=== PATIENT | female | born 1935 | race Caucasian/White ===

== ENCOUNTER 2017-12-10 09:45 | Outpatient (CLI) | payer MEDICARE ==
--- NOTE | 2017-12-10 14:48 | NM ---
WHOLE BODY BONE SCAN: Date: 12/10/17 HISTORY: Wedge compression fracture of fifth lumbar vertebra. RADIOPHARMACEUTICAL: 31.2 mCi technetium-99m MDP injected intravenously. FINDINGS: There are no plain radiographs for correlation. Findings in the spine should be correlated with plain radiographs and also for adequate counting and labeling of the vertebra. There is increased uptake in the lower thoracic spine (likely T10), L2 and probably L4 or L5 vertebra e, suggestive of recent fractures. There are bilateral hip replacements. Focus of increased uptake at the inferior tip of the right femo ral prosthesis is present. Increased uptake in the shoulder joints, right greater than left, is consistent with degenerative mitchell nge. Tracer excretion through the kidneys within normal limits. IMPRESSION: 1. Recent compression fractures in the thoracolumbar spine. Correlation with plain radiographs recom mended. 2. Focus of increased uptake at the inferior aspect of the right hip replacement. The possibility of loosening should be considered. POS: [facility]
== END 2017-12-10 09:46 | disposition home or self-care (01) ==
LOC: NM 09:45
PROVIDERS: ATTEND Specialist
DX: S32.050D Wedge compression fracture of fifth lumbar vertebra, subsequent encounter for fracture with routine healing (principal); S22.009D Unspecified fracture of unspecified thoracic vertebra, subsequent encounter for fracture with routine healing
CPT/HCPCS: 78306; A9503

== ENCOUNTER 2017-12-12 12:39 | Inpatient (IN) | payer MEDICARE ==
[2017-12-12 13:34] LABS: Bilirubin Negative (Negative); Blood, Urine Negative (Negative); Clarity CLEAR (Clear); Glucose, Urine (Dipstick) Negative (Negative); Leukocyte Moderate (Negative); Nitrite Negative (Negative); Protein, Urine (Dipstick) Negative (Neg-Trace); Specific Gravity, Urine 1.003 (1.002-1.036); Urobilinogen 0.2 mg/dL (0.2-1.0); pH, Urine 7.5 (5.0-9.0)
[2017-12-12 13:35] LABS: Bacteria/HPF None Seen HPF (None Seen); Hyaline Casts/LPF 0-3 HYALINE CAST LPF (0-3 Hyaline); Pathc Cast-AUWi Flag 0.14 (0-2.49); RBC/HPF None Seen HPF (0-3); Squamous Epithelial 0-3 HPF (0-3)
[2017-12-12] MEDS ORDERED: Fentanyl 100 MCG/2 ML VIAL ONE ×3 (13:37→18:49)
[2017-12-12] MEDS ORDERED: Diazepam 10 MG/2 ML SYRINGE IVP ONE (13:45)
[2017-12-12] MEDS ORDERED: Diazepam 5 MG TAB ONE (14:17)
--- NOTE | 2017-12-12 14:25 | CT ---
CT LUMBAR SPINE WITHOUT CONTRAST: Date: 12/12/17 HISTORY: Chronic back pain. Patient had back surgery on Wednesday and believes show hurt the surgical changes yesterday. Increased pain. TECHNIQUE: Multiple contiguous axial images were obtained in a CT of the lumbar spine without contrast. Sagittal and coronal reformats were performed. FINDINGS: There is Grade I anterolisthesis of L4 on L5. There is wedge compression of the L1 vertebral body wit h approximately 10-25% height loss. There is severe wedge compression deformity of the T11 vertebral body with approximately 75% height loss. The fracture at T11 may be more acute. The other vertebral b odies demonstrate normal height. Posterior facet arthrosis is seen in the lower lumbosacral spine. There are calcified fibroids in the uterus. Scattered diverticula are seen in the colon. Atherosclero tic calcifications are seen in the aorta. Paraspinal soft tissues are unremarkable. IMPRESSION: 1. Degenerative changes of the lumbar spine without acute abnormality. 2. Compression fractures of T11 and L1 as above. POS: [facility]
[2017-12-12] MEDS ORDERED: Dexamethasone 4 MG TAB ONE (15:55)
[2017-12-12] MEDS ORDERED: Ondansetron HCl/PF 4 MG/2 ML Vial ONE (15:55)
[2017-12-12 16:09] LABS: #Lymphocytes 0.9 thou/uL (1.20-3.40); #Monocytes 0.3 thou/uL (0.11-0.59); #Neutrophils 4.4 thou/uL (1.40-6.50); %Basophils 0.4 % (0.0-1.0); %Eosinophils 0.7 % (0.0-10.0); %Lymphocytes 16.5 % (21.0-51.0); %Monocytes 4.8 % (0.0-10.0); %Neutrophils 77.6 % (42.0-75.0); Mean Corpuscular HGB CONC 34.4 g/dL (32.0-36.0); Mean Corpuscular Hemoglobin 31.8 pg (27.0-31.0); Mean Corpuscular Volume 92.4 fL (78.0-98.0); Mean Platelet Volume 8.6 fL (7.4-10.4); Platelet Count 149 thou/uL (130-400); RBC Distribution Width 15.1 % (11.5-14.5); Red Blood Cell (RBC) Count 3.78 mill/uL (4.20-5.40); White Blood Cell (WBC) Count 5.6 thou/uL (4.8-10.8)
[2017-12-12] MEDS ORDERED: Ondansetron ODT 4 MG TAB ONE (16:19)
[2017-12-12 16:29] LABS: ALT (SGPT) 17 U/L (8-55); AST (SGOT) 19 U/L (5-34); Alkaline Phosphatase 73 U/L (40-150); Anion Gap 11 mmol/L (10-20); BUN (Urea Nitrogen) 11 mg/dL (9.8-20.1); Bilirubin, Total 0.6 mg/dL (0.2-1.2); Calc. Creatinine Clearance 0 mL/min (70-130); Calcium 9.5 mg/dL (7.8-10.44); Carbon Dioxide 26 mmol/L (23-31); Chloride 107 mmol/L (98-107); Estimated GFR-MDRD 71; Globulin 2.8 g/dL (2.4-3.5); Glucose 168 mg/dL (83-110); Magnesium 2.2 mg/dL (1.6-2.6); Potassium 4.1 mmol/L (3.5-5.1); Protein, Total 6.8 g/dL (6.0-8.3); Sodium 140 mmol/L (136-145)
[2017-12-12] MEDS ORDERED: Ondansetron HCl/PF 4 MG/2 ML Vial IVP PRN (18:49)
[2017-12-12] MEDS: Acetaminophen 325 MG TAB PO PRN (20:29)
[2017-12-12] MEDS: Fentanyl 100 MCG/2 ML VIAL SLOW IVP PRN ×2 (20:36→22:48)
[2017-12-12 20:44] VITALS: BMI 23.3
[2017-12-12] MEDS ORDERED: Nitroglycerin 0.4 MG TAB (25 Tab Bottle) SL PRN (22:04)
[2017-12-12] MEDS ORDERED: Atorvastatin Calcium 40 MG TAB PO SCH (22:15)
[2017-12-12] MEDS ORDERED: Zolpidem Tartrate 5 MG TAB PO SCH (22:15)
[2017-12-12] MEDS: Dexamethasone 4 mg/ml Vial SLOW IVP SCH (22:55)
[2017-12-12] MEDS ORDERED: Dexamethasone 4 MG in Sodium Chloride 0.9% 50 ML IVPB SCH (23:55)
[2017-12-13] MEDS ORDERED: HYDROcodone/Acetaminophen 5/325 mg Tablet PO PRN ×2 (00:58→01:34)
[2017-12-13] MEDS ORDERED: Nitroglycerin 0.4 MG TAB (25 Tab Bottle) SL PRN (00:58)
[2017-12-13] MEDS ORDERED: Dextrose 5% in Water 1,000 ML IV PRN (01:03)
[2017-12-13] MEDS ORDERED: Dextrose 50% Abboject 50 ML SYRINGE SLOW IVP PRN (01:03)
--- NOTE | 2017-12-13 01:22 | CON ---
DATE OF CONSULTATION: 12/12/2017 CHIEF COMPLAINT: New onset low back pain. HISTORY OF PRESENT ILLNESS: Ms. Anthony reports that she was sitting in a chair this afternoon when sh e got to get up, she stretched a little bit and felt a pop and sudden pain in her low back. The fior ent has a history of compression fractures which she sees Dr. Espitia for. She actually has a kyph oplasty scheduled for Wednesday of this week. This is a new compression fracture that happened today . The patient denies any falls. The patient states that she has had some urinary symptoms of retent ion throughout the morning. However, upon coming to the emergency room, she has been able to urinate normally with some urgency. She does test positive for a UTI. The patient denies any numbness or t ingling in her saddle area. She does state that she has a small amount of tingling in both of her to es that is new today. She has an ache in her back and her hips that comes down to the front of her l eg bilaterally. The patient is most comfortable when lying flat and any amount of moving, sudden mov ement is very painful for her. She is able to move all 4 extremities well with good strength bilater ally. REVIEW OF SYSTEMS: The patient denies any fever, chills, any change in weight. She denies any heari ng or visual changes. Denies any difficulty swallowing. No nausea or vomiting. No chest pain, no s hortness of breath. The patient denies any abdominal pain, constipation or diarrhea. The patient st ates that she has had some difficulty with urination and frequency. The patient states that she has back pain. PAST MEDICAL HISTORY: The patient has diabetes, type 2; history of hypertension; and cardiovascular disease. PAST SURGICAL HISTORY: The patient has had 3 stents placed approximately about a year ago, appendect evens and left knee orthopedic surgery. SOCIAL HISTORY: The patient denies any drug use. She has a history of smoking, quit 30 years ago. She drinks socially. Lives with her at home, fairly independent. ALLERGIES: MORPHINE and PENICILLIN. CURRENT MEDICATIONS: Eliquis, carvedilol, atorvastatin, , lidocaine, adhesive patch, B12, hydro codone/acetaminophen, alprazolam, prednisone, levothyroxine, nitroglycerin. PHYSICAL EXAMINATION: VITAL SIGNS: Blood pressure 152/87, heart rate 73, respiratory rate 17, pain 9, O2 sats is 98% on ro om air. GENERAL: The patient is lying in hospital bed. She is afebrile. Breathing normally is nontoxic. S he is alert and oriented to person, place, and time. HEAD: Normal. Atraumatic, normocephalic. EYES: Pupils are equal, round, and reactive to light. Extraocular movements are intact. No nystagm us. ENT: Moist mucous membranes. RESPIRATORY: Normal work of breathing in room air. Normal chest rise symmetrical. CARDIOVASCULAR: Regular rate and rhythm. No murmurs. S1, S2. NEUROLOGIC: The patient is oriented to person, place and time. Speech is normal, fluent. Cranial n erves II-XII are grossly intact. There are no focal motor deficits. The patient is moving all 4 ext remities. She has 5/5 strength in upper and lower extremities; however, movement in lower extremitie s increases her lumbar back pain. The patient denies any sensory deficits in all 4 extremities. The patient is tender to palpate at T11 down to L3. Paraspinal muscles are spasm and painful to touch b ilaterally. IMAGING: Lumbar spine CT shows compression fracture of T11 and L1, acute. ASSESSMENT AND PLAN: The patient has sustained a new T11 compression fracture. She also has older L 1 compression fracture. The patient is also positive for a urinary tract infection. She will be adm itted and monitored based on her UTI along with pain management. We will order for the alon rosa isela fractures. The patient sees Dr. Espitia and he has been notified of her admission to the hosp [facility]. She was scheduled to have a kyphoplasty on Wednesday and he may be able to address the new fra cture at the same time. The patient should use a brace for pain control. She should have it on anyt barbara she is up and out of bed. She does not need to wear while she is flat. The patient may roll kodi e to side while in bed. The patient does not need to use brace while she is in the shower. Brace sh ould be applied while lying down before she sits up. Please contact Neurosurgery if any new symptoms change.
[2017-12-13] MEDS: Lidocaine 5% Patch TD SCH (02:02)
[2017-12-13] MEDS: cefTRIAXone\\ROCEPHIN 1 GM in Sodium Chloride 0.9% 100 ML IVPB SCH (02:48)
[2017-12-13] MEDS: Fentanyl 100 MCG/2 ML VIAL SLOW IVP PRN (03:16)
--- NOTE | 2017-12-13 03:19 | HP ---
PRIMARY CARE PHYSICIAN: [facility]. CODE STATUS: The patient is FULL CODE. TIME OF EVALUATION: 6:35 p.m. CHIEF COMPLAINT: Severe back pain, unable to urinate. HISTORY OF PRESENT ILLNESS: This is an 82-year-old female patient with past medical history of osteo porosis and multiple back surgeries due to compression fractures, patient reported having some back s urgery Wednesday and she was moving yesterday, she started having severe pain and reported that she w as unable to urinate, the symptoms are reported as severe, triggered by movement, no alleviating fact ors, started suddenly. The recent neurosurgeon was consulted. The patient is on Decadron, she will be seen by Neurosurgery for further recommendations. REVIEW OF SYSTEMS: Constitutional: No fever, no chills, generalized weakness, dizziness. Respirato ry: No cough, sputum production, shortness of breath. Cardiovascular: No chest pain or palpitation s, shortness of breath. Gastrointestinal: No nausea, no vomiting, diarrhea or abdominal pain. POTATO CHIP FRYER: No dizziness, headache or feeling lightheaded. Patient has inability to urinate, bilateral lower e xtremities. pain exacerbated with movement. Genitourinary: Urinary retention. Extremities: No le g swelling. All other systems reviewed and negative except for the findings mentioned above. PAST MEDICAL HISTORY: Positive for diabetes type 2, hypertension. PAST SURGICAL HISTORY: Valve replacement one year ago, appendectomy, orthopedic surgery, left knee s urgery. PSYCHIATRIC HISTORY: No psych history. SOCIAL HISTORY: Patient is a former tobacco user, quit smoking 30 years ago. DRUG ALLERGIES: MORPHINE and PENICILLIN. REPORTED MEDICATIONS: Eliquis 2.5 mg a day, clopidogrel, atorvastatin, risedronate, , hydrocodo ne/acetaminophen, alprazolam, prednisone, levothyroxine, nitroglycerin. PHYSICAL EXAMINATION: VITAL SIGNS: On presentation, blood pressure 202/99 with heart rate 74, respiratory rate was 18, tem perature 98.3, pain 10/10, oxygen saturation 98%. GENERAL APPEARANCE: The patient is alert, oriented, not in any acute distress, only when she moves, the pain comes back again. HEENT: Eyes: Normal conjunctivae. Moist oral mucosa. Anicteric. NECK: No JVD. RESPIRATORY: Bilateral air entry. No rales or wheezing. Symmetric expansion. CARDIOVASCULAR: Normal rate, regular rhythm. No murmurs, no gallop. No edema. ABDOMEN: Soft, normal bowel sounds. MUSCULOSKELETAL: Baseline range of motion and strength. No tenderness. SKIN: Warm and intact. No pallor, no rash. No redness. Peripheral pulses are present. NEUROLOGIC: Capillary refill seems to be intact. Neurologic, baseline sensory. Patient has bilater al lower extremity weakness, patient unable to urinate likely due to neurogenic bladder. PSYCHIATRIC: Patient is in a good mood. No anxiety. Oriented. Optimal adjustment. IMAGING: Lumbar spine CT was done. The patient has degenerative changes in the lumbar spine without acute abnormalities, compression fractures of T11 and L1. LABORATORY DATA: The labs were reviewed. The patient has white count 5.6, hemoglobin 12, hematocrit 34.9, MCV 92, platelet count 149. Chemistry: Sodium 140, potassium 4.1, chloride 107, carbon dioxi de 26, glucose 168, creatinine is normal. UA was done, it was positive. ASSESSMENT AND PLAN: 1. Lumbar compression fracture, severe pain, difficulty urinating, patient is on Decadron, Neurosurg kanu has been called, see the patient and give recommendations. 2. Urinary tract infection, positive urine, patient has been started on antibiotics, final cultures. Adjust treatment as needed. 3. Severe pain needing a pain medication for edema control. It is believed patient had a recent com plication from medication. 3. Anxiety. Reconcile home medications. 4. Hyperlipidemia, reconcile home medication, adjust treatment as needed. 5. Uncontrolled diabetes, blood sugar 160, we will place the patient on sliding scale, adjust treatm ent as needed. 6. Uncontrolled hypertension, we will reconcile home meds, adjust medications IV p.r.n. for optimal control. 7. Deep venous thrombosis prophylaxis, possible need for procedure.
[2017-12-13] MEDS: Dexamethasone 4 mg/ml Vial SLOW IVP SCH ×3 (05:37→17:48)
[2017-12-13] MEDS: Acetaminophen 325 MG TAB PO PRN ×2 (05:37→20:33)
[2017-12-13] MEDS: Levothyroxine Sodium 50 MCG TAB PO SCH (05:37)
[2017-12-13 06:03] LABS: #Lymphocytes 0.5 thou/uL (1.20-3.40); #Monocytes 0.1 thou/uL (0.11-0.59); #Neutrophils 3.9 thou/uL (1.40-6.50); %Basophils 0.3 % (0.0-1.0); %Eosinophils 0.2 % (0.0-10.0); %Lymphocytes 11.7 % (21.0-51.0); %Monocytes 1.8 % (0.0-10.0); Hemoglobin 12.1 g/dL (12.0-16.0); Mean Corpuscular HGB CONC 34.3 g/dL (32.0-36.0); Mean Corpuscular Hemoglobin 31.4 pg (27.0-31.0); Mean Corpuscular Volume 91.6 fL (78.0-98.0); Mean Platelet Volume 8.3 fL (7.4-10.4); Platelet Count 162 thou/uL (130-400); RBC Distribution Width 15.2 % (11.5-14.5); Red Blood Cell (RBC) Count 3.84 mill/uL (4.20-5.40); White Blood Cell (WBC) Count 4.6 thou/uL (4.8-10.8)
[2017-12-13 06:21] LABS: Anion Gap 13 mmol/L (10-20); BUN (Urea Nitrogen) 14 mg/dL (9.8-20.1); Calc. Creatinine Clearance 49 mL/min (70-130); Carbon Dioxide 21 mmol/L (23-31); Chloride 107 mmol/L (98-107); Estimated GFR-MDRD 68; Glucose 238 mg/dL (83-110); Potassium 3.9 mmol/L (3.5-5.1); Sodium 137 mmol/L (136-145)
--- NOTE | 2017-12-13 07:20 | PRG ---
DATE OF SERVICE: 12/13/2017 I personally interviewed and examined the patient and agree with documentation of Ghazal Nicole PA-C dated 12/11/2017. Briefly, Ms. Sarah Anthony is an 82-year-old woman admitted to the hospital with some intractable back pa in. On Wednesday of last week, she was standing from a seated position and had immediate onset back pain. Interestingly, the pain is centered at the sacral level rather than at T11. This became so se colt that she could not manage at home and was brought to the emergency department after a number of days. She has good motor control of her lower extremities and no saddle anesthesia and was admitted for pain control. Imaging has been done revealing brightness on the bone scan at T11, L3 and L5. A CT scan was done showing compression fractures at T11, L1, L3 and L5 as well as some sacral wing defo rmity that appears chronic. Overnight, Ms. Anthony's pain is little bit better controlled. She is wearing her brace. She has good motor function in her lower extremities. After speaking with Ms. Anthony, I wonder if there is a small sacral insufficiency fracture given the l ocation of her pain at the sacral level to the right side near the sacroiliac joint rather than the m idline of the spine. However, she is tender there. When change, we need to make to her medical tk men that is been more aggressive about her osteoporosis. A Forteo or Prolia should be considered to prevent the next fracture. I think we should manage this pain with bracing and analgesics. I am not sure which of the 3-4 fractures are giving her most of her discomfort, but certainly the T11 vertebr ae is the brightest on her bone scan. Use of bone cement for vertebroplasty or kyphoplasty would cer tainly be an option for pain control if she fails conservative measures. However, it puts her at ris k for future fractures above and below those vertebral bodies that are treated with cement. Further, this might not offer any pain control at all if there is indeed a sacral issue. She agrees with the conservative management scheme. Physical therapy can be instituted now as well a nd will follow up in the office to see how her pain control is.
[2017-12-13] MEDS ORDERED: predniSONE 5 MG TAB PO SCH (08:00)
[2017-12-13] MEDS ORDERED: Prevnar 13-Val Conj/PF 0.5 ML SYRINGE IM ONE (09:00)
[2017-12-13] MEDS: Cyanocobalamin (Vitamin B-12) 1,000 MCG TAB PO SCH (09:10)
[2017-12-13] MEDS: Senokot 8.6 MG TAB PO SCH ×2 (09:10→20:33)
[2017-12-13] MEDS: ALPRAZolam 0.25 MG TAB PO PRN (09:10)
[2017-12-13] MEDS: HYDROcodone/Acetaminophen 5/325 mg Tablet PO PRN ×3 (09:11→17:48)
[2017-12-13] MEDS: traMADol HCl 50 MG TAB PO PRN (11:45)
[2017-12-13] MEDS: HumaLOG 300 UNITS/3 ML VIAL SC PRN ×2 (11:46→17:48)
--- NOTE | 2017-12-13 12:33 | CT ---
CT LUMBAR SPINE: Technique: Multiple contiguous axial images were obtained through the lumbar spine with multiplanar r econstruction. Indications: Assess compression fractures. Comparison: CT lumbar spine, 12-12-17. Bone scan, 12-10-17. FINDINGS: Bone scan showed activity in the T11 vertebra as well as the region of the L3 vertebra. The severe compression deformity at T11 is again noted and is unchanged from yesterday. The anterior wedge compression at T12 and L1 appears stable. The loss of anterior height at L1 is approximately 40 -50% and unchanged. Mild compression deformity of L3 is seen which is stable from yesterday. Activity at L3 may indicate an acute compression deformity. There is a small fragment off the anterior superior corner of L3 whic h does suggest probable acute compression. L4 vertebra is maintained and unchanged. There is mild compression of the L5 vertebra which is stable from yesterday. No activity was present at L5 region and therefore this is probably a stable compression. There is anterolisthesis of L4-5 which was described yesterday and is stable. Moderate to severe central canal stenosis at L2-3 due to disc bulge and posterior hypertrophic change . Moderate to severe central canal stenosis at L3-4 secondary to disc bulge and posterior hypertrophic change. Severe central canal stenosis at L4-5 secondary to anterolisthesis, disc bulge, and hypertrophic pérez ge. Moderate central canal stenosis at L5-S1. IMPRESSION: There are compression deformities involving multiple vertebrae as described above. The findings are s table from yesterday. There is central canal stenosis at multiple levels as described above. POS: [facility]
[2017-12-13] MEDS: Lidocaine Patch Removal 1 EACH TOP SCH (13:32)
--- NOTE | 2017-12-13 18:13 | CT ---
CT THORACIC SPINE WITHOUT CONTRAST: HISTORY: T11 fracture. COMPARISON: None. TECHNIQUE: Thoracic spine CT is performed without contrast. Reformatted images are submitted for interpretation . FINDINGS: There is a stent along the aortic root and proximal aorta. Mediastinal structures are limited in pete luation. No obvious pericardial fluid. There are coronary artery calcifications. The visualized ao rta has an overall normal caliber. The visualized upper solid organs are unremarkable. Note is made of cholelithiasis. Trachea and central bronchi are patent. The visualized lung parenchyma are unremarkable. There is diffuse bone demineralization. There is a severe compression fracture with loss of vertebra l body height and resultant kyphosis at T11. There is a mild compression fracture at T10 and L1. Th e aforementioned compression fractures appear to be chronic. There is no retroperitoneal/paraspinal hematoma. Grossly, the central spinal canal is patent. There is mild narrowing at the T11 and T11-T12 disk spa manjeet. Throughout the thoracic spine, the neural foramina are patent. IMPRESSION: Remote compression fracture involving the thoracic and lumbar spine, as described above. There is a severe compression fracture at T11 with associated vertebral plana and kyphosis. POS: [facility]
[2017-12-13] MEDS ORDERED: diphenhydrAMINE 25 MG CAP PO PRN (19:40)
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
[2017-12-13] MEDS: Zolpidem Tartrate 5 MG TAB PO SCH (20:33)
[2017-12-13] MEDS: Atorvastatin Calcium 40 MG TAB PO SCH (20:33)
[2017-12-13] MEDS ORDERED: ZOLPIDEM TARTRATE PO SCH (21:00)
[2017-12-13] MEDS ORDERED: Atorvastatin Calcium 40 MG TAB PO SCH (21:00)
[2017-12-14] MEDS: Dexamethasone 4 mg/ml Vial SLOW IVP SCH ×4 (00:59→16:34)
[2017-12-14] MEDS: Lidocaine 5% Patch TD SCH (00:59)
[2017-12-14] MEDS: cefTRIAXone\\ROCEPHIN 1 GM in Sodium Chloride 0.9% 100 ML IVPB SCH (03:50)
[2017-12-14] MEDS: HumaLOG 300 UNITS/3 ML VIAL SC PRN ×4 (06:47→20:45)
[2017-12-14] MEDS: Levothyroxine Sodium 50 MCG TAB PO SCH (06:47)
[2017-12-14] MEDS: HYDROcodone/Acetaminophen 5/325 mg Tablet PO PRN ×3 (08:50→20:37)
[2017-12-14] MEDS: Senokot 8.6 MG TAB PO SCH ×2 (08:50→20:36)
[2017-12-14] MEDS: Cyanocobalamin (Vitamin B-12) 1,000 MCG TAB PO SCH (08:50)
--- NOTE | 2017-12-14 10:32 | CON ---
DATE OF CONSULTATION: 12/13/2017 HISTORY OF PRESENT ILLNESS: Ms. Anthony is an 82-year-old female, who was recently evaluated and treat ed in our pain management clinic last week, who was admitted from the emergency room on 12/12/[address] reporting feeling a "pop" in her mid to low back, followed by severe pain on Wednesday morning while trying to reposition in bed. The pain was sharp, stabbing and limited her mobility, transfers and f unctionality at home. She was brought to the emergency room for increase in pain where a CT of the l umbar spine was completed which revealed what appeared like an acute T11 vertebral body compression f racture and multiple lumbar compression fractures of varying acuity at the L1, L3, L4, and L5 levels as well. After discussing the case with the ER physician on Wednesday it was decided to admit the patie nt for observation, pain control and recommended bracing with input from Neurosurgery. Ms. Anthony had recently completed lumbar medial branch blocks last week with Dr. Espitia for her chr onic low back pain. She had had a previous CT done at [facility], which was reviewed in the clinic revealing an L4-L5 listhesis with moderate to severe central canal stenosis and moderate b ilateral neural foraminal stenosis. The medial branch blocks did provide her with minimal relief; ho wever, it appears like her old compression fractures were giving her more pain than her facets. Kyph oplasty was therefore planned for later this coming week in the lumbar spine pending holding of antic oagulant therapy and bone scan results for L1 versus L3 with Dr. Espitia. Today, she has been admi tted. She is resting in bed with a TLSO brace, appears comfortable and rates her pain at 8/10 after recently being medicated. She continues to report pain to the midline back as well as the lower lumb ar and sacral region, which is greater on the right versus left. She was having some bladder inconti nence; however, she reports return of bladder function, no bowel movement in 3 days. She denies any radiating pain to the lower extremities. Reports generalized weakness to lower extremities; however, this has been consistent for her for the past several weeks. ALLERGIES: MORPHINE and PENICILLIN. PAST MEDICAL HISTORY: Diabetes, hypertension, CBD stents, pulmonary embolus, hyperlipidemia, heart v alve replacement. PAST SURGICAL HISTORY: Heart valve surgery, cardiac stents, knee surgery, shoulder fracture. FAMILY HISTORY: Includes CVA, heart disease. SOCIAL HISTORY: Reports living alone independently; however, she does rely on her son for transporta tion and assist around her house. She uses an assistive device for mobility including wheelchair and /or rolling walker dependent on her pain level. She is a former smoker. She does have Mica Washer Gluer apy come into her home 4-5 times a week. MEDICATIONS: Current medications have been reviewed. REVIEW OF SYSTEMS: Review of systems are negative except for pertinent positives above noted in the history of present illness. PHYSICAL EXAMINATION: VITAL SIGNS: Today are 134/71, heart rate is 70, temperature 98.3, respirations 18, 97% saturation o n room air. GENERAL: Again, the patient is alert and oriented x3, resting in bed with TLSO in place. No acute d istress, pain is 8/10. C-spine with active range of motion that is full, reflexes bilateral +1. Mot or strength is diminished to bilateral upper extremities, 3/5 equal with +4/5 ccie strength to bilate ral upper extremities. Thoracic spine with tenderness at T11-T12 with palpation, no obvious deformit ies noted, TLSO brace on, which is loosened for the exam. She was able to log roll fairly independen tly for assessment. Range of motion is limited with the TLSO on and her thoracic pain. Lumbar spine with bilateral lower lumbar pain, greater on the right sacral region versus the left. Bilateral low er extremities with SCDs in place. Bilateral lower extremity strength 4/5, equal with intact dorsifl exion, plantar flexion. Straight leg raise is negative on exam bilaterally. Gait is not assessed, p atient remains in bed. SI joint with no tenderness bilaterally. Neurologically, she is intact, aler t, pleasant, oriented x3. ASSESSMENT AND PLAN: 1. Acute thoracic compression fracture of T11. Plan is recommend to continue conservative treatment with bracing and medications. Neurosurgery has been consulted with no surgical recommendations at t his time. Plan to start physical therapy to work on functional mobility. Recommendation to follow u p for thoracic CT to ensure the levels above and around T11 including T9, T10 are without fractures a s she remains tender and symptomatic in this area. After discussion with Dr. Daftarian she will like ly benefit from kyphoplasty at T11 [address] of the thoracic spine as this is obviously acute and new in nature. Recommendation to follow up after CT thoracic spine completed. Risk are associated w ith bed rest and limited function secondary to pain from vertebral compression fracture include pneum onia, weakness, ileus and continued decline in function and independence as well as chronic pain. 2. Chronic compression lumbar fractures. The plan is to continue to monitor, may be a candidate for kyphoplasty or repeat lumbar medial branch blocks in the facet joints which may improve short term, may lead to longer term relief with rhizotomy for pain management.
[2017-12-14] MEDS: traMADol HCl 50 MG TAB PO PRN (11:22)
[2017-12-14] MEDS: Lidocaine Patch Removal 1 EACH TOP SCH (12:06)
[2017-12-14] MEDS: ALPRAZolam 0.25 MG TAB PO PRN (19:33)
--- NOTE | 2017-12-14 20:11 | PDOC.PN ---
- Subjective Encounter Start Date: 12/14/17 Encounter Start Time: 20:10 Subjective: f/u for UTI, multiple vertebral compression fx tx with TLSO bracing -: and pain control. Ucx with Enterococcus spp. Feels ok overall. - Objective Resuscitation Status: Resuscitation Status FULL:Full Resuscitation MAR Reviewed: Yes Vital Signs & Weight: Vital Signs (12 hours) Temp Pulse Resp BP Pulse Ox 12/14/17 19:53 97.9 F 60 20 130/62 97 12/14/17 16:17 97.8 F 74 18 115/74 94 L 12/14/17 11:06 97.6 F 76 18 120/69 98 Weight Weight 130 lb 14.4 oz I&O: 12/13/17 12/14/17 12/15/17 06:59 06:59 06:59 Intake Total 451 Output Total 600 700 Balance -149 -700 Result Diagrams: 12/13/17 05:32 12/13/17 05:32 Additional Labs: Accuchecks 12/14/17 12/14/17 12/14/17 15:38 10:45 04:31 POC Glucose 279 H 220 H 213 H 12/13/17 20:37 POC Glucose 191 H Microbiology 12/12/17 13:17 Urine Straight Catheter Urine Culture - Final Enterococcus species 12/12/17 13:17 Urine Straight Catheter Urine Culture - Preliminary Presumptive Enterococcus sp. Phys Exam - Physical Examination Constitutional: NAD HEENT: PERRLA, sclera anicteric, oral pharynx no lesions Neck: no nodes, no JVD, supple, full ROM Respiratory: no wheezing, no rales, no rhonchi, clear to auscultation bilateral S1, S2 Cardiovascular: RRR, no significant murmur, no rub, gallop Gastrointestinal: soft, non-tender, no distention, positive bowel sounds TLSO brace in place Musculoskeletal: no edema, pulses present Neurological: normal sensation, moves all 4 limbs Psychiatric: normal affect, A&O x 3 Skin: normal turgor, cap refill <2 seconds Dx/Plan (1) Intractable low back pain Code(s): M54.5 - LOW BACK PAIN Status: Acute Comment: Secondary to multiple compression fx and DJD, TSLO bracing, pain control, Dexamethasone (2) Vertebral compression fracture Code(s): M48.50XA - COLLAPSED VERTEBRA, NEC, SITE UNSP, INIT Status: Acute Comment: See above for mgmt, ? kyphoplasty (3) UTI (urinary tract infection) due to Enterococcus Code(s): N39.0 - URINARY TRACT INFECTION, SITE NOT SPECIFIED; B95.2 - ENTEROCOCCUS THE CAUSE OF DISEASES CLASSIFIED ELSEWHERE Status: Acute Comment: Continue Rocephin 1gm IV daily, start Macrobid 100mg BID in am (4) Osteoporosis Code(s): M81.0 - AGE-RELATED OSTEOPOROSIS W/O CURRENT PATHOLOGICAL FRACTURE Status: Chronic Comment: Likely will benefit from Forteo or Prolia after d/c - Plan PT/OT, social media intern, out of bed/ambulate, DVT proph w/SCDs Stable overall -: Continue Pain control -: Continue Dexamethasone converting to po in am -: OOB with PT -: Inpt rehab vs SNF options * .
[2017-12-14] MEDS: Atorvastatin Calcium 40 MG TAB PO SCH (20:36)
[2017-12-14] MEDS: Zolpidem Tartrate 5 MG TAB PO SCH (20:37)
[2017-12-14] MEDS: Nitrofurantoin Monohyd/M-Cryst 100 MG CAP PO SCH (20:37)
[2017-12-15] MEDS: Dexamethasone 4 mg/ml Vial SLOW IVP SCH ×4 (00:01→18:16)
[2017-12-15] MEDS: Lidocaine 5% Patch TD SCH (01:11)
[2017-12-15] MEDS: cefTRIAXone\\ROCEPHIN 1 GM in Sodium Chloride 0.9% 100 ML IVPB SCH (03:32)
[2017-12-15] MEDS: Levothyroxine Sodium 50 MCG TAB PO SCH (06:00)
[2017-12-15] MEDS: Fentanyl 100 MCG/2 ML VIAL SLOW IVP PRN ×2 (09:16→11:35)
[2017-12-15] MEDS: Cyanocobalamin (Vitamin B-12) 1,000 MCG TAB PO SCH (10:39)
[2017-12-15] MEDS: Nitrofurantoin Monohyd/M-Cryst 100 MG CAP PO SCH ×2 (10:39→20:09)
[2017-12-15] MEDS: Senokot 8.6 MG TAB PO SCH ×2 (10:39→20:09)
[2017-12-15] MEDS ORDERED: Fentanyl 100 MCG/2 ML VIAL ONE ×2 (15:00→15:39)
[2017-12-15] MEDS ORDERED: hydrALAZINE 20 MG/ML VIAL ONE (15:00)
[2017-12-15] MEDS: Lidocaine Patch Removal 1 EACH TOP SCH (15:28)
[2017-12-15 15:56] LABS: CKMB 0.7 ng/mL (0-6.6); Troponin I Less than 0.010 ng/mL (< 0.028)
--- NOTE | 2017-12-15 16:01 | RAD ---
PORTABLE AP CHEST X-RAY 12/15/17 HISTORY: Chest pain. COMPARISON: None available. FINDINGS: Dual lead left subclavian cardiac pacemaking device noted in place. There is stent graft material ove rlying the expected location of the aortic valve which may represent aortic valve replacement. Cardia c silhouette and pulmonary vasculature are within normal limits. Calcified granuloma overlies the rig ht upper lobe. The lungs are otherwise clear. osteopenia is present. Vertebroplasty changes involve c ompression fractures of the lower thoracic and upper lumbar vertebral bodies. Vascular calcification in the thoracic aorta. IMPRESSION: No acute cardiopulmonary process. POS: [facility]
--- NOTE | 2017-12-15 17:48 | PDOC.PN ---
- Subjective Encounter Start Date: 12/15/17 Encounter Start Time: 17:40 Subjective: f/u for T11 compression fx and s/p kyphoplasty of same level including -: L1, L3 and L5. c/o back pain currently. - Objective Resuscitation Status: Resuscitation Status FULL:Full Resuscitation MAR Reviewed: Yes Vital Signs & Weight: Vital Signs (12 hours) Temp Pulse Resp BP Pulse Ox 12/15/17 16:30 98.2 F 80 16 133/74 98 12/15/17 11:30 98.1 F 62 16 134/78 98 12/15/17 08:45 98.4 F 55 L 16 97 12/15/17 07:00 98.4 F 55 L 16 125/75 97 Weight Weight 130 lb 14.4 oz I&O: 12/14/17 12/15/17 12/16/17 06:59 06:59 06:59 Output Total 700 Balance -700 Result Diagrams: 12/13/17 05:32 12/13/17 05:32 Additional Labs: Accuchecks 12/15/17 12/14/17 05:53 20:24 POC Glucose 99 155 H Radiology Reviewed by me: Yes (PCXR - no acute process) Phys Exam - Physical Examination Constitutional: NAD HEENT: PERRLA, sclera anicteric, oral pharynx no lesions Neck: no nodes, no JVD, supple, full ROM Respiratory: no wheezing, no rales, no rhonchi, clear to auscultation bilateral S1, S2 Cardiovascular: RRR, no significant murmur, no rub, gallop Gastrointestinal: soft, non-tender, no distention, positive bowel sounds Musculoskeletal: no edema, pulses present Neurological: normal sensation, moves all 4 limbs Psychiatric: A&O x 3 Skin: no rash, normal turgor, cap refill <2 seconds Dx/Plan (1) Intractable low back pain Code(s): M54.5 - LOW BACK PAIN Status: Acute Comment: Secondary to multiple compression fx and DJD, TSLO bracing, pain control, Dexamethasone (2) Vertebral compression fracture Code(s): M48.50XA - COLLAPSED VERTEBRA, NEC, SITE UNSP, INIT Status: Acute Comment: See above for mgmt, s/p kyphoplasty T11, L1, L3 and L5, pain control, bracing (3) UTI (urinary tract infection) due to Enterococcus Code(s): N39.0 - URINARY TRACT INFECTION, SITE NOT SPECIFIED; B95.2 - ENTEROCOCCUS THE CAUSE OF DISEASES CLASSIFIED ELSEWHERE Status: Acute Comment: Continue Rocephin 1gm IV daily, start Macrobid 100mg BID in am (4) Osteoporosis Code(s): M81.0 - AGE-RELATED OSTEOPOROSIS W/O CURRENT PATHOLOGICAL FRACTURE Status: Chronic Comment: Likely will benefit from Forteo or Prolia after d/c - Plan continue antibiotics, PT/OT, social insurance analyst, DVT proph w/SCDs Stable currently -: Pain control with Fentanyl and [place] -: Resume Eliquis 5mg BID -: Continue Dexamethasone 4mg IV q6h -: Rehab evaluation pending * .
[2017-12-15] MEDS: HYDROcodone/Acetaminophen 5/325 mg Tablet PO PRN ×2 (18:35→22:53)
--- NOTE | 2017-12-15 19:40 | OP ---
DATE OF PROCEDURE: 12/15/2017 PREOPERATIVE DIAGNOSIS: 1. Vertebral compression fracture of T11, S22.080A. 2. L1 vertebral compression fracture, S32.010A. 3. L3 compression fracture, S32.030A. 4. L5 compression fracture S32.050A. PROCEDURE: Kyphoplasty of T11, L1, L3, and L5. ANESTHESIA: MAC. SURGEON: Myself. COMPLICATIONS: No apparent complications noted at this time. PROCEDURE IN DETAIL: The patient was taken to the procedure room and placed prone on the procedure r oom table. A timeout was performed. The back was prepped with ChloraPrep and sterile drapes were ap plied. Fluoroscopic images were used to identify the appropriate level and correlate these images wi th prior CT scan and nuclear medicine study. The skin was anesthetized with 0.25% Marcaine. The rig ht pedicle of L5 was identified, cephalad and caudad views were obtained such that the trajectory of the needle and the pedicle would be entered to the vertebral body and approached midline at final pos ition. The 11 gauge trocar was advanced through the pedicle on the right side under AP view trocar w as advanced to the cortex of the vertebral body, taking care not to violate the medial cortex of the pedicle and does not enter the spinal canal. After contacting the cortex and lateral views were used to advance the needle and the vertebral bodies such that the tip was located the junction of the pos terior one-third and middle one-third of the vertebral body. A drill was placed to create a cavity, a balloon was then placed through the cavity and inflated to 300 psi with approximately 3 mL of contr ast. A curved needle was then placed through the trocar and advanced across midline. The same exact procedure was performed on with using the left pedicle of L3 and the right pedicle of L1. Cortoss c ement was then injected into the cavities with no extravasation of cement noted. Spread was noted th roughout these cavities and throughout the vertebral body as seen on final images. We then turned ou r attention to the T11 vertebral body. We anesthetized the skin and advanced to 13 gauge trocar to t he pedicle on the right and left side. We then advanced the needle using the same procedure as tay juan jose above to gain access to the vertebral body. Once into the vertebral body, we used a drill to cre ate a cavity and a balloon to create a cavity. We then inserted a bone filler with Cortoss cement an d injected 1 mL on both sides. This filled the vertebral body and spread was noted throughout the ca vities. There was no extravasation of cement. The needles were then removed under continuous fluoro scopy. Pressure was held over the wounds and dressings were applied. The patient was then taken to the PACU after 15 minutes to allow adequate time for the cement to dry under stable condition.
[2017-12-15] MEDS: Atorvastatin Calcium 40 MG TAB PO SCH (20:09)
[2017-12-15] MEDS: Apixaban 5 MG TAB PO SCH (20:09)
[2017-12-15] MEDS: traMADol HCl 50 MG TAB PO PRN (20:13)
[2017-12-15] MEDS: Zolpidem Tartrate 5 MG TAB PO SCH (21:24)
[2017-12-15] MEDS: HumaLOG 300 UNITS/3 ML VIAL SC PRN (21:33)
[2017-12-16] MEDS: Dexamethasone 4 mg/ml Vial SLOW IVP SCH ×3 (00:21→12:23)
[2017-12-16] MEDS: Lidocaine 5% Patch TD SCH (01:01)
[2017-12-16] MEDS: HYDROcodone/Acetaminophen 5/325 mg Tablet PO PRN ×3 (05:06→13:23)
[2017-12-16] MEDS: Levothyroxine Sodium 50 MCG TAB PO SCH (05:07)
[2017-12-16] MEDS: HumaLOG 300 UNITS/3 ML VIAL SC PRN ×3 (06:48→16:42)
[2017-12-16] MEDS: Nitrofurantoin Monohyd/M-Cryst 100 MG CAP PO SCH (08:39)
[2017-12-16] MEDS: Apixaban 5 MG TAB PO SCH (08:39)
[2017-12-16] MEDS: Cyanocobalamin (Vitamin B-12) 1,000 MCG TAB PO SCH (08:39)
[2017-12-16] MEDS: Senokot 8.6 MG TAB PO SCH (08:40)
[2017-12-16] MEDS ORDERED: Clopidogrel Bisulfate 75 MG TAB PO SCH (09:00)
[2017-12-16] MEDS: Lidocaine Patch Removal 1 EACH TOP SCH (13:23)
[2017-12-16 15:49] VITALS: BP 141/59; TEMP 97.9
[2017-12-16] MEDS: ALPRAZolam 0.25 MG TAB PO PRN (16:42)
--- NOTE | 2017-12-16 22:46 | DIS ---
DATE OF ADMISSION: 12/12/2017 DATE OF DISCHARGE: 12/16/2017 DISCHARGE DIAGNOSES: 1. Vertebral compression fractures at T11, L1, L3, L5. 2. Intractable back pain secondary to #1, improved. 3. Status post kyphoplasty at T11, L1, L3, and L5. 4. Osteoporosis. 5. Urinary tract infection with Enterococcus species. CONSULTATIONS: Dr. Espitia with Pain Management Service. Dr. Esparza with Neurosurgical Service . PERTINENT LAB AND X-RAY FINDINGS: Basic metabolic profile within normal limits. Calcium ranged betw een 9.0-9.5, magnesium 2.2. LFTs within normal limits. CBC showed a white blood cell count ranging between 4.6-5.6, hemoglobin 12. Urine culture dated 12/12/2017 showed 50,000-75,000 colonies of Ente rococcus species resistant to gentamicin and tetracycline. CT of the lumbar spine dated 12/12/2017 s howed degenerative changes of the lumbar spine. Compression fracture of T11 and L1. CT of the lumba r spine dated 12/13/2017 showed compression deformities involving multiple vertebral levels including T11, L1, L3, and L5. CT of the thoracic spine dated 12/13/2017 showed remote compression fracture T 10 and L1 with severe compression fracture of T11. HOSPITAL COURSE: The patient was admitted after presenting with severe back pain and inability to ur inate. The patient underwent extensive evaluation after initiation of Decadron by the Neurosurgical Service. The patient underwent multiple imaging studies of the lumbar spine showing multiple alon rosa isela fractures of T11, L1, L3, and L5. The patient was also placed on IV pain medications and underw ent evaluation for potential surgical intervention. Due to patient's multiple compression fractures, no specific surgical intervention was recommended by Neurosurgical Service. The patient was evaluat ed by the Pain Management Service with recommendations to proceed with kyphoplasty. The patient unde rwent successful kyphoplasty of T11, L1, L3, and L5 respectively on 12/15/2017. The patient was also treated for mild urinary tract infection with Enterococcus species transitioning to Macrobid 100 mg p.o. b.i.d. until 12/21/2017. Overall, patient did remain clinically stable to remainder the hospita l course. The patient was placed in the lumbosacral orthotic brace and recommended for ongoing thera py in an acute inpatient rehabilitation setting. The patient has been approved to transfer to [facility] and will transfer on 12/16/2017. I have examined the patient at the t barbara of discharge and discussed followup instructions, at which point, the patient verbalizes understa nding and agreement. The patient overall clinically stable and ready for discharge 12/16/2017. DISCHARGE MEDICATIONS: 1. Xanax 0.25 mg p.o. b.i.d. 2. Eliquis 5 mg p.o. b.i.d. 3. Lipitor 80 mg p.o. at bedtime. 4. Plavix 75 mg p.o. daily. 5. Eligen B12 tablet 1000 mcg p.o. daily. 6. Dexilant 60 mg p.o. daily. 7. Levothyroxine 50 mcg p.o. daily. 8. Lidocaine patch 1 patch topically daily. 9. Nitroglycerin 0.4 mg sublingually every 5 minutes p.r.n. chest pain. 10. Prednisone 5 mg 1 tablet p.o. daily. 11. Risedronate 35 mg p.o. q.7 days. 12. Senokot 1 tablet p.o. b.i.d. p.r.n. 13. Tramadol 50 mg p.o. b.i.d. p.r.n. 14. Ambien 10 mg p.o. at bedtime. 15. [place] 5/325 mg 1-2 tabs p.o. q.4. p.r.n. pain. 16. Macrobid 100 mg p.o. b.i.d. until 12/21/2017. FOLLOWUP: The patient will follow up with Rachel Mccray NP and to call her office for appointment balta block and faye. Patient will follow up with Dr. Amparo Espitia with Pain Management Service 2 to 3 weeks after discharge from inpatient rehabilitation. CONDITION ON DISCHARGE: Stable. ACTIVITY: Ad javi. Rolling walker with LSO brace for ambulation. DIET: Regular. CODE STATUS: FULL. DISPOSITION: [facility] 12/16/2017. Total time preparing and coordinating discharge 35 minutes.
--- NOTE | 2017-12-17 14:41 | EKG ---
Test Reason : Blood Pressure : / mmHG Vent. Rate : 075 BPM Atrial Rate : 075 BPM P-R Int : 240 ms QRS Dur : 140 ms QT Int : 436 ms P-R-T Axes : 088 -71 091 degrees QTc Int : 486 ms Atrial-sensed ventricular-paced rhythm with prolonged AV conduction with occasional Premature ventric ular complexes Abnormal ECG No previous ECGs available Confirmed by AYANA BHAT, JESUSITA ([id number]) on 12/17/2017 2:41:14 PM Referred By: KETTY Confirmed By:JESUSITA PIÑA MD
--- NOTE | 2017-12-17 15:12 | EKG ---
Test Reason : POST OP Blood Pressure : / mmHG Vent. Rate : 072 BPM Atrial Rate : 072 BPM P-R Int : 240 ms QRS Dur : 132 ms QT Int : 448 ms P-R-T Axes : 084 -66 100 degrees QTc Int : 490 ms Electronic ventricular pacemaker When compared with ECG of 12-DEC-2017 21:34, (Unconfirmed) Premature ventricular complexes are no longer Present Vent. rate has decreased BY 3 BPM Confirmed by JESUSITA PIÑA MD ([id number]) on 12/17/2017 3:11:52 PM Referred By: ANGEL Confirmed By:JESUSITA PIÑA MD
== END 2017-12-16 17:25 | DRG 516 ==
LOC: ERS 12:39 → SURG A 19:05 → OBSVTOIN 19:05 → INTOOBSV 19:05 → OBSVTOIN 12-13 19:58
PROVIDERS: ADMIT Internal Medicine; ATTEND Internal Medicine
PROC: 0PS43ZZ Reposition Thoracic Vertebra, Percutaneous Approach (ICD-10-PCS; principal; 2017-12-15)
PROC: 0QS03ZZ Reposition Lumbar Vertebra, Percutaneous Approach (ICD-10-PCS; 2017-12-15)
PROC: 0QU03JZ Supplement Lumbar Vertebra with Synthetic Substitute, Percutaneous Approach (ICD-10-PCS; 2017-12-15)
PROC: 0PU43JZ Supplement Thoracic Vertebra with Synthetic Substitute, Percutaneous Approach (ICD-10-PCS; 2017-12-15)
DX: S22.080A Wedge compression fracture of T11-T12 vertebra, initial encounter for closed fracture (principal); S32.010A Wedge compression fracture of first lumbar vertebra, initial encounter for closed fracture; S32.030A Wedge compression fracture of third lumbar vertebra, initial encounter for closed fracture; S32.050A Wedge compression fracture of fifth lumbar vertebra, initial encounter for closed fracture; N39.0 Urinary tract infection, site not specified; M81.0 Age-related osteoporosis without current pathological fracture; E11.9 Type 2 diabetes mellitus without complications; I10 Essential (primary) hypertension; Z95.2 Presence of prosthetic heart valve; Z87.891 Personal history of nicotine dependence; Z88.0 Allergy status to penicillin; F41.9 Anxiety disorder, unspecified; E78.5 Hyperlipidemia, unspecified; B95.2 Enterococcus as the cause of diseases classified elsewhere; Z79.02 Long term (current) use of antithrombotics/antiplatelets; Z79.52 Long term (current) use of systemic steroids; Z86.711 Personal history of pulmonary embolism
CPT/HCPCS: 36415; 36416; 51701; 71045; 72128; 72131; 78306; 80048; 80053; 81003; 81015; 82553; 83735; 84484; 85025; 87077; 87086; 87186; 90471; 90670; 93005; 93010; 96365; 96375; 96376; A4353; A9503; G0009; J0360; J0696; J1100; J1956; J2405; J3010; J7050; J8540; Q0162

== ENCOUNTER 2018-11-29 10:36 | Outpatient (CLI) | payer MEDICARE ==
--- NOTE | 2018-11-29 14:03 | CT ---
CT LUMBAR SPINE WITHOUT CONTRAST: Date; 11/29/18 Axial tomograms obtained with multiplanar reconstruction. INDICATION: Evaluate compression fractures. Low back pain. Right sciatica. Comparison made to CT lumbar spine dated 12/13/17. FINDINGS: Vertebroplasty changes are now noted at several vertebra. There is severe compression of the T11 vert ebra with vertebroplasty cement in place. The compression deformity is poorly imaged on this lumbar s pine exam, but appears stable from the prior study. Compression deformity at L1 is again noted. Vertebroplasty cement is now in place at this vertebra. C entral and anterior compression at this vertebra appears stable from the prior exam. L2 vertebra maintain height. Vertebroplasty changes are seen at L3. There is central compression of L3 which is more pronounced th an on the 12/13/17 exam. Mild posterior and anterior height loss is slightly more prominent than on t he prior study. L4 vertebra maintain height and appears unchanged. There is an anterolisthesis at L4-5 which is stabl e. ' Vertebroplasty changes are present at L5 since the prior exam. There is mild anterior wedge compressi on at L5 which does not appear significantly changed in degree when compared to the prior study. At T12-L1, no significant disc bulge. No central canal or foraminal stenosis. At L1-2, broad based disc bulge is slightly more pronounced to the left with mild left foraminal encr oachment. Mild central canal stenosis. At L2-3, diffuse disc bulge. Facet and ligamentous hypertrophy with moderate central canal stenosis i s present at this level> Asymmetric disc bulge/protrusion is seen to the left with encroachment into the left foramina. At L3-4, slight retropulsion of the posterior inferior corner of L3 with mild diffuse disc bulge. The se changes flatten the thecal sac and result in moderate central canal stenosis at the disc level. No significant foraminal stenosis apparent. At L4-5, anterolisthesis is present with diffuse disc bulge. Facet and ligamentous hypertrophy is pre sent. These changes result in severe central canal stenosis. Mild bilateral foraminal stenosis due to these changes. At L5-S1, broad based disc bulge with severe facet hypertrophy results in moderate central canal sten osis. Mild right foraminal stenosis. IMPRESSION: Vertebroplasty changes and compression deformities at multiple levels as described above. Severe cent ral canal stenosis at L4-5. Moderate central canal stenosis at L3-4 and moderate to severe at L2-3, a s described above. POS: [facility]
== END 2018-11-29 10:37 | disposition home or self-care (01) ==
LOC: CT 10:36
PROVIDERS: ATTEND Specialist
DX: S32.050A Wedge compression fracture of fifth lumbar vertebra, initial encounter for closed fracture (principal); M48.061 Spinal stenosis, lumbar region without neurogenic claudication; M43.9 Deforming dorsopathy, unspecified; Z98.1 Arthrodesis status
CPT/HCPCS: 72131

== ENCOUNTER 2019-06-02 11:03 | Outpatient (CLI) | payer MEDICARE ==
--- NOTE | 2019-06-02 12:21 | CT ---
CT LUMBAR SPINE WITHOUT CONTRAST: History: Wedge compression fracture. Comparison: CT lumbar spine November 29, 2018. Findings: Similar appearance of the L5, L3, and L1 fractures which do contain cemented. No further height loss. There is also a compression fracture of T11 involving both the superior and inferior endplates with 50% anterior height loss, also unchanged. No acute superimposed fracture of the lumbar spine. There is retropulsion of the posterior L3 vertebral body 2 to 3 mm, unchanged. 2-3 mm L4 over L5 anterolisthesis is similar with posterior displacement of disc material as an adapt ation to subluxation. High-grade narrowing of the interspinous space L3-L5 with cortical sclerosis and subcortical cysts. No acute transverse process fracture. Bones are highly demineralized. Moderate degenerative disease o f the SI joints. Moderate vascular calcifications of the aorta. Level by level analysis is relatively similar to the November 29, 2018 exam. Impression: No further height loss nor new compression deformities of the lumbar spine. Transcribed Date/Time: 06/02/2019 12:40 PM
== END 2019-06-02 11:04 | disposition home or self-care (01) ==
LOC: SCSCT 11:03
PROVIDERS: ATTEND Specialist
DX: S32.000A Wedge compression fracture of unspecified lumbar vertebra, initial encounter for closed fracture (principal)
CPT/HCPCS: 72131

== ENCOUNTER 2020-03-22 14:18 | Inpatient (IN) | payer MEDICARE ==
[~2020-03-22 14:18] MED LIST: Iopamidol-370 76% 500 ML 1 ML ONE
[2020-03-22] MEDS ORDERED: Ondansetron PF 4 MG/2 ML Vial ONE (15:10)
[2020-03-22 15:48] LABS: #Lymphocytes 0.9 thou/uL (1.20-3.40); #Monocytes 1.2 thou/uL (0.11-0.59); #Neutrophils 13.3 thou/uL (1.40-6.50); %Basophils 0.2 % (0.0-1.0); %Eosinophils 0.1 % (0.0-10.0); %Lymphocytes 5.8 % (21.0-51.0); %Monocytes 7.8 % (0.0-10.0); %Neutrophils 86.1 % (42.0-75.0); Hemoglobin 12.8 g/dL (12.0-16.0); Mean Corpuscular HGB CONC 33.6 g/dL (32.0-36.0); Mean Corpuscular Hemoglobin 31.6 pg (27.0-31.0); Mean Platelet Volume 8.4 fL (7.4-10.4); Platelet Count 153 thou/uL (130-400); RBC Distribution Width 15.1 % (11.5-14.5); Red Blood Cell (RBC) Count 4.04 mill/uL (4.20-5.40); White Blood Cell (WBC) Count 15.5 thou/uL (4.8-10.8)
--- NOTE | 2020-03-22 15:53 | RAD ---
EXAM: Single view of the chest HISTORY: Nausea and diarrhea COMPARISON: 12/15/2017 FINDINGS: Single view of the chest shows a normal sized cardiomediastinal silhouette. The patient is status post aortic valve repair. Atherosclerotic calcifications are seen in the aorta. The pacemaker is unchanged in position. There is no evidence of consolidation or pleural effusion. Scatt ered calcified granulomas are seen in the lungs. Degenerative changes and vertebroplasty cement are seen in the spine. IMPRESSION: No evidence of acute cardiopulmonary disease
[2020-03-22 16:12] LABS: ALT (SGPT) 19 U/L (8-55); AST (SGOT) 21 U/L (5-34); Albumin 3.8 g/dL (3.4-4.8); Alkaline Phosphatase 71 U/L (40-110); Anion Gap 16 mmol/L (10-20); BUN (Urea Nitrogen) 17 mg/dL (9.8-20.1); Bilirubin, Total 0.8 mg/dL (0.2-1.2); CK (CPK) 29 U/L (29-168); Calc. Creatinine Clearance 0 mL/min (70-130); Calcium 9.6 mg/dL (7.8-10.44); Carbon Dioxide 22 mmol/L (23-31); Chloride 105 mmol/L (98-107); Estimated GFR-MDRD 61; Globulin 2.8 g/dL (2.4-3.5); Glucose 258 mg/dL (83-110); Lipase 8 U/L (8-78); Potassium 3.4 mmol/L (3.5-5.1); Protein, Total 6.6 g/dL (6.0-8.3); Sodium 140 mmol/L (136-145)
[2020-03-22 16:33] LABS: CKMB 1.6 ng/mL (0-6.6)
[2020-03-22 16:47] LABS: Bacteria/HPF None Seen HPF (None Seen); Bilirubin Negative (Negative); Blood, Urine Negative (Negative); Calcium Oxalate Crystals 1+ HPF (None Seen); Clarity Clear (Clear); Glucose, Urine (Dipstick) >=1000 mg/dL (Negative); Ketone, Urine Trace mg/dL (Negative); Leukocyte Negative Leu/uL (Negative); Mucous/LPF 1+ LPF (<2+); Nitrite Negative (Negative); Protein, Urine (Dipstick) 50 mg/dL (Neg-Trace); RBC/HPF 0-3 HPF (0-3); Specific Gravity, Urine 1.037 (1.002-1.036); Squamous Epithelial None Seen HPF (0-3); WBC/HPF 0-3 HPF (0-3); pH, Urine 5.5 (5.0-9.0)
[2020-03-22] MEDS ORDERED: Aspirin Chewable 81 MG TAB ONE (17:27)
[2020-03-22] MEDS ORDERED: Fentanyl 100 MCG/2 ML VIAL ONE (17:27)
--- NOTE | 2020-03-22 17:56 | CT ---
CT ABDOMEN AND PELVIS WITH IV CONTRAST: 03/22/20 PROVIDED CLINICAL HISTORY: Diarrhea and vomiting. FINDINGS: The visualized lung bases are free of significant opacity. Stable anterior mediastinal soft tissue ma ss with respect to a 2018 CT thoracic spine measuring about 1.4 cm. The liver, spleen, pancreas, kidneys and adrenal glands appear unremarkable. There is conspicuous mural thickening and mucosal enhancement involving the distal descending and sig moid colon. There is no evidence for bowel obstruction. There is no inflammatory fat stranding, free fluid or free air apparent. Extensive atherosclerotic vascular calcifications are seen involving the abdominal aorta and its bran ches. Several small gallstones are seen without gallbladder distention. Bilateral hip postoperative changes and multilevel spinal vertebroplasty changes are seen. IMPRESSION: 1. Findings compatible with colitis involving the distal descending and sigmoid colon. Infectiou s, inflammatory, and ischemic etiologies are possible. 2. Other findings as above. POS: SEAMUS
[2020-03-22] MEDS ORDERED: Guaifenesin DM 100-10/5 ML UDCUP PO PRN (18:25)
[2020-03-22] MEDS ORDERED: HYDROcodone/Acetaminophen 5/325 mg Tablet PO PRN (18:25)
--- NOTE | 2020-03-22 19:14 | HP ---
REASON FOR ADMISSION: Acute colitis, hykdehfu-sj-opddca dehydration, gaags-mz-kqssira back pain. HISTORY OF PRESENTING ILLNESS: The patient gives history of having profuse watery diarrhea from last 2 days. She also developed severe vomiting from this morning. She was unable to keep anything down. The patient also got worried that she will not be able to have her kyphoplasty, which is scheduled for Wednesday. If her sickness got worse and finally called her son and made it to the emergency room here. She has complaints of severe back pain, which has also gotten worse from last 2 days. She has taken a lot of [place] pills, which have not really helped her. No blood in her stool. Her last colonoscopy, which was more than 5 or 6 years back was normal as far as she knows. The patient has had a COVID test done 5 days back with the results of which she does not now. She has had another COVID test done today for kyphoplasty procedure on Wednesday, the results of which are unknown at present. She has no complaints of fever or generalized body aches. She lives with her son, who is asymptomatic as well. PAST MEDICAL AND SURGICAL HISTORY: History of TAVR, diabetes mellitus type 2, hypertension, appendectomy, left knee surgery, chronic left bundle branch, hypothyroidism, history of temporal arteritis, cardiac stents x3 placed in [place] by her cryptoanalysis teacher, Dr. Porter, number to reach him is [phone], pacemaker. CURRENT MEDICATIONS: 1. Atorvastatin 80 mg p.o. at bedtime. 2. Lidocaine 5% transdermal patch daily. 3. Vitamin B12 of 1000 mcg p.o. daily. 4. [place] 5/325 two tablets p.o. q.4 hourly p.r.n. 5. Alprazolam 0.25 mg p.r.n. 6. Levothyroxine 50 mcg p.o. daily. ALLERGIES: TO LEVAQUIN, MORPHINE, AND PENICILLIN. PERSONAL HISTORY: Quit smoking more than 30 to 35 years ago. Does not abuse alcohol or drugs. Lives with her son. FAMILY HISTORY: The patient has outlived most of her family. CODE STATUS: Full. Power of trademark attorney is her son. REVIEW OF SYSTEMS: CONSTITUTIONAL: Negative for weight loss or gain, ability to conduct usual activities. SKIN: Negative for rash, itching. EYES: Negative for double vision, pain. ENT/MOUTH: Negative for nose bleeding, neck stiffness, pain, tenderness. CARDIOVASCULAR: Negative for palpitations, dyspnea on exertion, orthopnea. RESPIRATORY: Negative for shortness of breath, wheezing, cough, hemoptysis, fever or night sweats. GASTROINTESTINAL: Negative for poor appetite, abdominal pain, heartburn, nausea, vomiting, constipation, or diarrhea. GENITOURINARY: Negative for urgency, frequency, dysuria, nocturia. MUSCULOSKELETAL: Negative for pain, swelling. NEUROLOGIC/PSYCHIATRIC: Negative for anxiety, depression. ALLERGY/IMMUNOLOGIC: Negative for skin rash, bleeding tendency. PHYSICAL EXAMINATION: GENERAL: The patient is an 85-year-old female who is currently not in any acute distress. VITAL SIGNS: Blood pressure 164/74, pulse 90 per minute, respiratory rate 18 per minute, temperature 98.4 degrees Fahrenheit, saturating 96% on room air. NECK: Supple. No elevated JVD. HEENT: Eyes; extraocular muscles intact. Pupils reacting to light. Oral cavity, mucous membranes are dry. No exudates or congestion. CARDIOVASCULAR SYSTEM: S1 and S2 heard. Regular rhythm. RESPIRATORY SYSTEM: Air entry 1+ bilateral. No rales or rhonchi. ABDOMEN: Soft. Bowel sounds heard. No tenderness, rigidity, or guarding. EXTREMITIES: There is mild peripheral edema. No calf tenderness. VASCULAR SYSTEM: Peripheral pulses 1+ bilateral. No ischemic ulcerations or gangrene. CENTRAL NERVOUS SYSTEM: No gross focal motor deficits noted. The patient is alert, awake, and oriented well. PSYCHIATRIC SYSTEM: The patient's mood is euthymic. No hallucinations or delusions. LABORATORY DATA: Chest x-ray done shows no acute cardiopulmonary abnormality. CT of the abdomen and pelvis with IV contrast done shows findings compatible with colitis in the descending colon and sigmoid colon. There are gallstones seen without gallbladder distention. White count of 15, H and H of 12 and 38, platelet count 153 with 86% neutrophils, MCV is 94. Serum bicarb 22, BUN 17, creatinine 0.8, serum glucose 258. Liver enzymes within normal limits. CK-MB 1.6. Albumin 3.8, lipase is 8. UA shows trace ketones. EKG done shows normal sinus rhythm at 92 beats per minute. There is LBBB seen, QRS duration is 156 msec, corrected QT is 494 msec. CLINICAL IMPRESSION AND PLAN: The patient will be admitted to medical floor for descending colon colitis with intractable nausea, vomiting, and dfhhcojw-[id number]-[id number] dehydration. She will be gently hydrated with normal saline at 100 mL per hour. We will obtain stool studies. The patient is also in severe pain and we will place her on fentanyl patch in addition to her [place]. We will place her on meropenem as the patient is allergic to quinolones and penicillin. We will continue her home dose of Lipitor, Xanax, Dexilant, levothyroxine as before. I have given complete updates to the patient and her son at bedside. The patient remains in-house on Wednesday. She will likely have her kyphoplasty prior to going home. We will obtain PT/OT evaluations and help her mobilize during her stay here. Job ID: [id number]
[2020-03-22] MEDS: Sodium Chloride 0.9% 1,000 ML IV SCH (20:17)
[2020-03-22 20:18] VITALS: BMI 23.5
[2020-03-22] MEDS: Atorvastatin Calcium 40 MG TAB PO SCH (20:19)
[2020-03-22] MEDS ORDERED: Famotidine 20 MG TAB PO SCH (21:00)
[2020-03-22] MEDS ORDERED: Zolpidem Tartrate 5 MG TAB PO SCH (21:00)
[2020-03-22] MEDS: Lidocaine 5% Patch TD SCH (21:14)
[2020-03-22] MEDS: Meropenem 500 MG in Sodium Chloride 0.9% 100 ML IVPB SCH (21:16)
[2020-03-23] MEDS: HYDROcodone/Acetaminophen 10/325 mg Tablet PO PRN ×6 (02:29→23:53)
[2020-03-23 03:11] LABS: SARS-CoV-2 MS2 Positive; SARS-CoV-2 N Gene Negative; SARS-CoV-2 S Gene Negative; SARS-CoV-2 by NAA Not Detected (NotDetected); SARS-CoV-2 orf1ab Negative
[2020-03-23] MEDS: Lidocaine Patch Removal 1 EACH TOP SCH (03:49)
[2020-03-23] MEDS: Sodium Chloride 0.9% 1,000 ML IV SCH (04:11)
[2020-03-23] MEDS: Meropenem 500 MG in Sodium Chloride 0.9% 100 ML IVPB SCH ×3 (04:11→19:58)
[2020-03-23] MEDS: Levothyroxine Sodium 50 MCG TAB PO SCH (04:13)
[2020-03-23 06:10] LABS: #Eosinphils 0.1 thou/uL (0.0-0.7); #Lymphocytes 1.5 thou/uL (1.20-3.40); #Monocytes 0.6 thou/uL (0.11-0.59); #Neutrophils 5.6 thou/uL (1.40-6.50); %Basophils 0.5 % (0.0-1.0); %Lymphocytes 19.2 % (21.0-51.0); %Monocytes 7.9 % (0.0-10.0); %Neutrophils 71.4 % (42.0-75.0); Hemoglobin 11.7 g/dL (12.0-16.0); Mean Corpuscular HGB CONC 33.1 g/dL (32.0-36.0); Mean Corpuscular Hemoglobin 31.5 pg (27.0-31.0); Mean Platelet Volume 7.8 fL (7.4-10.4); Platelet Count 151 thou/uL (130-400); RBC Distribution Width 15.2 % (11.5-14.5); Red Blood Cell (RBC) Count 3.73 mill/uL (4.20-5.40); White Blood Cell (WBC) Count 7.8 thou/uL (4.8-10.8)
[2020-03-23 06:34] LABS: Anion Gap 11 mmol/L (10-20); BUN (Urea Nitrogen) 12 mg/dL (9.8-20.1); Calc. Creatinine Clearance 54 mL/min (70-130); Calcium 8.7 mg/dL (7.8-10.44); Carbon Dioxide 23 mmol/L (23-31); Chloride 110 mmol/L (98-107); Estimated GFR-MDRD 81; Glucose 114 mg/dL (83-110); Potassium 3.3 mmol/L (3.5-5.1); Sodium 141 mmol/L (136-145)
[2020-03-23] MEDS: Enoxaparin Sodium 40 MG/0.4 ML SYRINGE SC SCH (08:54)
[2020-03-23] MEDS: Cyanocobalamin (Vitamin B-12) 1,000 MCG TAB PO SCH (08:54)
[2020-03-23] MEDS: Acetaminophen 325 MG TAB PO PRN ×2 (12:14→20:54)
--- NOTE | 2020-03-23 13:24 | PDOC.HOSPP ---
- Objective Vital Signs & Weight: Vital Signs (12 hours) Temp Pulse Resp BP BP Pulse Ox 03/23/20 11:15 99.3 F 73 17 145/78 H 97 03/23/20 07:10 98.5 F 77 17 153/77 H 97 03/23/20 04:38 98.1 F 64 16 124/76 94 L Weight Admit Weight 128 lb Weight 128 lb 8 oz I&O: 03/22/20 03/23/20 03/24/20 06:59 06:59 06:59 Intake Total 1100 Balance 1100 Result Diagrams: 03/23/20 05:46 03/23/20 05:46 Hospitalist ROS - Medication Medications: Active Medications Generic Name Dose Route Start Last Admin Trade Name Freq PRN Reason Stop Dose Admin Acetaminophen 650 mg 03/22/20 18:25 03/23/20 12:14 Acetaminophen 325 Mg Tab PO 650 mg Q4H PRN Administration Headache/Fever/Mild Pain (1-3) Hydrocodone Bitart/Acetaminophen 1 tab 03/22/20 18:25 03/23/20 09:59 Hydrocodone/Acetaminophen 10/325 Mg Tablet PO 1 tab Q4H PRN Administration Moderate Pain (4-6) Atorvastatin Calcium 80 mg 03/22/20 21:00 03/22/20 20:19 Atorvastatin Calcium 40 Mg Tab PO 80 mg HS NICOLE Administration Cyanocobalamin 1,000 mcg 03/23/20 09:00 03/23/20 08:54 Cyanocobalamin (Vitamin B-12) 1,000 Mcg Tab PO 1,000 mcg DAILY NICOLE Administration Enoxaparin Sodium 40 mg 03/23/20 09:00 03/23/20 08:54 Enoxaparin Sodium 40 Mg/0.4 Ml Syringe SC 03/24/20 11:00 40 mg 0900 NICOLE Administration Fentanyl 25 mcg 03/22/20 21:00 03/22/20 20:21 Fentanyl 25 Mcg/Hour Patch TD 25 mcg Q3D NICOLE Administration Sodium Chloride 1,000 mls @ 100 mls/hr 03/22/20 18:30 03/23/20 04:11 Normal Saline 0.9% IV 03/23/20 14:29 1,000 mls .Q10H NICOLE Administration Meropenem 500 mg/ Sodium 100 mls @ 0 mls/hr 03/22/20 20:00 03/23/20 12:15 Chloride IVPB 100 mls 0400,1200,2000 NICOLE Administration Levothyroxine Sodium 50 mcg 03/23/20 06:00 03/23/20 04:13 Levothyroxine Sodium 50 Mcg Tab PO 50 mcg 0600 NICOLE Administration Lidocaine 1 patch 03/22/20 18:30 03/22/20 21:14 Lidocaine 5% Patch TD Not Given Q24HR [facility] Miscellaneous Medication 1 each 03/23/20 06:30 03/23/20 03:49 Lidocaine Patch Removal 1 Each TOP Not Given 0630 [facility] Pantoprazole Sodium 40 mg 03/23/20 09:00 03/23/20 08:54 Pantoprazole 40 Mg Tab PO 40 mg DAILY NICOLE Administration Hosp A/P - Plan Colitis Dehydration Back pain -Stool study negative for Campylobacter as well as Shiga toxin and C. difficile negative -Leukocytosis resolved -Patient seems to be improving. -Pain control with the fentanyl patch as well as [place]. Mild hypokalemia that has been replaced Abnormal troponin with a level of 0.04 likely due to metabolic mismatch with demand ischemia Patient on regular diet currently. -We will keep her on Wednesday for n.p.o. past midnight for possible kyphoplasty on Wednesday. This was planned in the past.
[2020-03-23] MEDS: ALPRAZolam 0.25 MG TAB PO PRN (16:54)
[2020-03-23] MEDS: Lidocaine 5% Patch TD SCH (18:22)
[2020-03-23] MEDS: Atorvastatin Calcium 40 MG TAB PO SCH (19:59)
[2020-03-23] MEDS: Zolpidem Tartrate 5 MG TAB PO PRN (20:54)
[2020-03-24] MEDS: Meropenem 500 MG in Sodium Chloride 0.9% 100 ML IVPB SCH ×3 (03:27→19:58)
[2020-03-24] MEDS: HYDROcodone/Acetaminophen 10/325 mg Tablet PO PRN ×5 (03:40→21:14)
[2020-03-24] MEDS ORDERED: Ketorolac Tromethamine 30 MG/ML VIAL IVP SCH (04:00)
[2020-03-24] MEDS: Levothyroxine Sodium 50 MCG TAB PO SCH (06:20)
[2020-03-24] MEDS: Lidocaine Patch Removal 1 EACH TOP SCH (06:22)
[2020-03-24] MEDS: Cyanocobalamin (Vitamin B-12) 1,000 MCG TAB PO SCH (07:53)
[2020-03-24] MEDS: Enoxaparin Sodium 40 MG/0.4 ML SYRINGE SC SCH (07:53)
[2020-03-24] MEDS: NS 0.9% w/ 20 MEQ KCL 1,000 ML/1,000 ML BAG IV SCH (11:11)
[2020-03-24 11:15] LABS: Anion Gap 12 mmol/L (10-20); BUN (Urea Nitrogen) 10 mg/dL (9.8-20.1); Calc. Creatinine Clearance 53 mL/min (70-130); Carbon Dioxide 22 mmol/L (23-31); Chloride 112 mmol/L (98-107); Estimated GFR-MDRD 79; Glucose 126 mg/dL (83-110); Potassium 3.7 mmol/L (3.5-5.1); Sodium 142 mmol/L (136-145)
--- NOTE | 2020-03-24 13:25 | PDOC.HOSPP ---
- Subjective Encounter Date: 03/24/20 Encounter Time: 11:10 Subjective: Patient doing well. She did not had any bowel movement. No stomach pain. She is on regular diet - tolerating it. We will keep her n.p.o. midnight. surgery has to visit her for possible kyphoplasty tomorrow. Discussed with the patient as well as RN. - Objective Vital Signs & Weight: Vital Signs (12 hours) Temp Pulse Resp BP Pulse Ox 03/24/20 09:30 112/72 03/24/20 08:18 98.1 F 69 18 171/96 H 94 L Weight Admit Weight 128 lb Weight 128 lb 8 oz I&O: 03/23/20 03/24/20 03/25/20 06:59 06:59 06:59 Intake Total 1100 2040 Output Total 700 Balance 1100 1340 Result Diagrams: 03/23/20 05:46 03/24/20 10:43 Hospitalist ROS - Medication Medications: Active Medications Generic Name Dose Route Start Last Admin Trade Name Freq PRN Reason Stop Dose Admin Acetaminophen 650 mg 03/22/20 18:25 03/23/20 20:54 Acetaminophen 325 Mg Tab PO 650 mg Q4H PRN Administration Headache/Fever/Mild Pain (1-3) Hydrocodone Bitart/Acetaminophen 1 tab 03/22/20 18:25 03/24/20 12:50 Hydrocodone/Acetaminophen 10/325 Mg Tablet PO 1 tab Q4H PRN Administration Moderate Pain (4-6) Alprazolam 0.25 mg 03/22/20 18:25 03/23/20 16:54 Alprazolam 0.25 Mg Tab PO 0.25 mg BID PRN Administration Anxiety Atorvastatin Calcium 80 mg 03/22/20 21:00 03/23/20 19:59 Atorvastatin Calcium 40 Mg Tab PO 80 mg HS NICOLE Administration Cyanocobalamin 1,000 mcg 03/23/20 09:00 03/24/20 07:53 Cyanocobalamin (Vitamin B-12) 1,000 Mcg Tab PO 1,000 mcg DAILY NICOLE Administration Fentanyl 25 mcg 03/22/20 21:00 03/22/20 20:21 Fentanyl 25 Mcg/Hour Patch TD 25 mcg Q3D NICOLE Administration Meropenem 500 mg/ Sodium 100 mls @ 0 mls/hr 03/22/20 20:00 03/24/20 11:11 Chloride IVPB 100 mls 0400,1200,2000 NICOLE Administration Potassium Chloride/Sodium Chloride 1,000 ml in 1,000 mls @ 75 mls/hr 03/24/20 10:15 03/24/20 11:11 Ns 0.9% W/ 20 Meq Kcl IV 1,000 mls .[id number] NICOLE Administration Levothyroxine Sodium 50 mcg 03/23/20 06:00 03/24/20 06:20 Levothyroxine Sodium 50 Mcg Tab PO 50 mcg 0600 NICOLE Administration Lidocaine 1 patch 03/22/20 18:30 03/23/20 18:22 Lidocaine 5% Patch TD Not Given Q24HR NICOLE Miscellaneous Medication 1 each 03/23/20 06:30 03/24/20 06:22 Lidocaine Patch Removal 1 Each TOP Not Given 0630 NICOLE Pantoprazole Sodium 40 mg 03/23/20 09:00 03/24/20 07:53 Pantoprazole 40 Mg Tab PO 40 mg DAILY NICOLE Administration Zolpidem Tartrate 5 mg 03/23/20 10:14 03/23/20 20:54 Zolpidem Tartrate 5 Mg Tab PO 5 mg HSPRN PRN Administration Insomnia - Exam General Appearance: NAD, awake alert Eye: PERRL ENT: normocephalic atraumatic Neck: supple Heart: RRR, normal peripheral pulses Respiratory: CTAB, normal chest expansion Gastrointestinal: soft, normal bowel sounds Neurological: cranial nerve grossly intact, no focal deficits Musculoskeletal: generalized weakness Psychiatric: A&O x 3 Hosp A/P - Plan Colitis Dehydration Back pain -Stool study negative for Campylobacter as well as Shiga toxin and C. difficile negative -Leukocytosis resolved -Patient seems to be improving. -Pain control with the fentanyl patch as well as [place]. Mild hypokalemia that has been replaced Abnormal troponin with a level of 0.04 likely due to metabolic mismatch with demand ischemia Patient on regular diet currently. -We will keep her on Wednesday for n.p.o. past midnight for possible kyphoplasty on Wednesday. This was planned in the past.
[2020-03-24] MEDS: Acetaminophen 325 MG TAB PO PRN (15:35)
[2020-03-24] MEDS: Lidocaine 5% Patch TD SCH (18:53)
[2020-03-24] MEDS: traMADol HCl 50 MG TAB PO PRN (19:51)
[2020-03-24] MEDS: Atorvastatin Calcium 40 MG TAB PO SCH (20:23)
[2020-03-24] MEDS: Zolpidem Tartrate 5 MG TAB PO PRN (21:12)
[2020-03-25] MEDS: NS 0.9% w/ 20 MEQ KCL 1,000 ML/1,000 ML BAG IV SCH ×3 (01:08→18:27)
[2020-03-25] MEDS: HYDROcodone/Acetaminophen 10/325 mg Tablet PO PRN ×5 (01:15→21:20)
[2020-03-25] MEDS: Meropenem 500 MG in Sodium Chloride 0.9% 100 ML IVPB SCH ×3 (04:00→21:18)
[2020-03-25] MEDS: Levothyroxine Sodium 50 MCG TAB PO SCH (05:57)
[2020-03-25] MEDS: Lidocaine Patch Removal 1 EACH TOP SCH (06:07)
[2020-03-25 06:33] LABS: #Eosinphils 0.1 thou/uL (0.0-0.7); #Lymphocytes 1.4 thou/uL (1.20-3.40); #Monocytes 0.5 thou/uL (0.11-0.59); %Basophils 0.2 % (0.0-1.0); %Eosinophils 1.2 % (0.0-10.0); %Lymphocytes 23.2 % (21.0-51.0); %Monocytes 8.8 % (0.0-10.0); %Neutrophils 66.6 % (42.0-75.0); Hemoglobin 10.3 g/dL (12.0-16.0); Mean Corpuscular HGB CONC 29.4 g/dL (32.0-36.0); Mean Corpuscular Hemoglobin 27.7 pg (27.0-31.0); Mean Corpuscular Volume 94.3 fL (78.0-98.0); Mean Platelet Volume 7.7 fL (7.4-10.4); Platelet Count 161 thou/uL (130-400); RBC Distribution Width 15.1 % (11.5-14.5); Red Blood Cell (RBC) Count 3.71 mill/uL (4.20-5.40)
[2020-03-25 06:50] LABS: Anion Gap 13 mmol/L (10-20); BUN (Urea Nitrogen) 9 mg/dL (9.8-20.1); Calc. Creatinine Clearance 41 mL/min (70-130); Calcium 8.3 mg/dL (7.8-10.44); Carbon Dioxide 22 mmol/L (23-31); Chloride 111 mmol/L (98-107); Estimated GFR-MDRD 59; Glucose 114 mg/dL (83-110); Magnesium 1.6 mg/dL (1.6-2.6); Potassium 3.8 mmol/L (3.5-5.1); Sodium 142 mmol/L (136-145)
[2020-03-25] MEDS: Cyanocobalamin (Vitamin B-12) 1,000 MCG TAB PO SCH (08:14)
[2020-03-25 09:51] LABS: INR-International Normal Ratio 1.1; PTT 36.2 sec (22.9-36.1)
[2020-03-25] MEDS: ALPRAZolam 0.25 MG TAB PO PRN (10:25)
--- NOTE | 2020-03-25 11:31 | CON ---
DATE OF CONSULTATION: 03/25/2020 REASON FOR CONSULT: Back pain. HISTORY OF PRESENT ILLNESS: The patient is an 85-year-old female with history of multiple vertebral compression fractures, who developed 3 new fractures within the last two weeks. These were assessed on CT scan and she was scheduled for a kyphoplasty as an outpatient. However, last week on March 20, 2020, she started to have profuse watery diarrhea as well as nausea and vomiting and was taken to the ER at [facility]. The patient was discharged home, however, continued to have profuse watery diarrhea as well as nausea and vomiting for the next 2 days. The patient was then brought to the [place] ER and admitted on March 22, 2020. She was taking hydrocodone for pain relief. Other than her back pain, she continued to have watery diarrhea with no blood in her stool. No complaints of fever or body aches. The patient's back pain is in the mid and lower thoracic spine, worse with any type of movement, better with lying down flat. No radiation. Pain is described as sharp and aching and is described as a 10/10 when she moves. The patient has done well since being inpatient. She has been gently resuscitated with volume and her electrolytes are balanced. She has had no diarrhea since admission and no fever or chills or nausea or vomiting. PAST MEDICAL HISTORY: Involves diabetes type 2, hypertension, hypothyroidism, temporal arteritis, coronary artery disease. PAST SURGICAL HISTORY: Pacemaker placement, appendectomy, left knee surgery, and cardiac stents placed x3. HOME MEDICATIONS: 1. Atorvastatin. 2. Transdermal lidocaine patch. 3. [place] 10/325 one p.o. q.4 hours p.r.n. pain. 4. Alprazolam 0.25 mg daily p.r.n. anxiety. 5. Levothyroxine 50 mcg p.o. daily. ALLERGIES: LEVAQUIN, MORPHINE, PENICILLIN. SOCIAL HISTORY: Former smoker. Has not smoked in 30 to 35 years. No alcohol or drug use. Lives with her son. FAMILY HISTORY: None contributory to this. REVIEW OF SYSTEMS: GENERAL: Denies weight loss or gain, fever, chills, body aches. SKIN: Negative for rash or itching. EYES: No double vision. No blurry vision. No eye pain. EAR, NOSE, AND THROAT: No nose bleeding, neck stiffness, pain or tenderness. CARDIOVASCULAR: Denies palpitation, dyspnea on exertion, or orthopnea. RESPIRATORY: No shortness of breath, wheezing, or cough. GASTROINTESTINAL: Within the last 3 days, she has not had any diarrhea or nausea or vomiting. She is able to eat and drink without problems. GENITOURINARY: Negative for urgency, frequency, or dysuria. MUSCULOSKELETAL: As HPI. NEUROLOGIC: No anxiety, depression, or toro currently. ALLERGIES/IMMUNOLOGIC: Negative for rash. Negative for bleeding tendency. PHYSICAL EXAMINATION: VITAL SIGNS: This morning, 97.5 degrees Fahrenheit, pulse of 65, respiratory rate of 20, O2 saturation of 96 on room air, and blood pressure 139/83. GENERAL: Alert and oriented x4, no acute distress, lying in bed. CARDIOVASCULAR: Normal pulses with no peripheral vascular swelling or edema. SKIN: Warm and dry. RESPIRATORY: Effort is normal. Symmetric, nonlabored respirations. No chest wall pain to palpation. SKIN: Normal turgor. Warm and dry. No masses or rashes or edema. MUSCULOSKELETAL: Severe tenderness to palpation with reproduction of pain from about T5-T9. Paraspinal muscle spasms present bilaterally in the thoracic spine. Range of motion is restricted due to severe pain. Lumbar, paraspinal tenderness and paraspinal spasm which is severe pain with extension. Vertebral spine tenderness mild to moderate. Straight leg raise is negative bilaterally. Motor system is 5/5 in bilateral lower extremity except for 4/5 with bilateral ankle dorsiflexion. Sensory, normal in the bilateral lower extremity, but slightly diminished with cold. Temperature sensation on the right lateral leg. Reflexes, diminished patella and absent Achilles bilateral. Gait, currently not able to stand due to severe pain. IMAGING STUDIES: Chest x-rays with no acute cardiopulmonary abnormality. CT of the abdomen and pelvis with IV contrast done in the ER show findings compatible with colitis on admission in the descending colon and sigmoid colon plus gallstones seen without gallbladder distention. LABORATORY DATA: This morning CBC; normal white blood cell count at 6, H and H are 10.3/35, platelet count is 161. Chemistries show sodium of 142, potassium 3.8, chloride of 111, carbon dioxide is 22, BUN is 9, creatinine is 0.91, glucose 114, calcium is 8.3, magnesium 1.6. ASSESSMENT: 1. Vertebral compression fracture of T6. 2. Vertebral compression fracture of T9 and T10. We have reviewed the CT scans that she had recently and compared them to a CT scan she had in December of 2019, and I have seen that the T6 fracture is definitely new and the vertebral compression fractures of T9 and T10 were chronic, however, have progressed, therefore are acute on chronic. She has debilitating pain and inability to ambulate or move due to the pain. In an 85-year-old with morbidity, we will move forward with a kyphoplasty of T6, T9 and T10 as the risk of not performing the procedure greatly increases morbidity as well as chances of mortality in her age group. 3. Pain control. Continue pain control with current pain regimen. 4. Diarrhea and vomiting have resolved. 5. Disposition, likely needs are to be discharged to a rehab facility before going to home. 6. Prepped for kyphoplasty. She has been scheduled in the OR at 1:30 today. She is n.p.o. and she is currently not on any blood thinners. I will order a set of coags prior to the kyphoplasty. Job ID: [id number]
[2020-03-25] MEDS ORDERED: Bupivacaine PF 0.5% 30 ML VIAL ONE (12:27)
[2020-03-25] MEDS ORDERED: Lidocaine 1% w/Epinephrine 1:100K 20 ML VIAL ONE (12:27)
[2020-03-25] MEDS ORDERED: Lidocaine 2% w/Epinephrine 1:200K 20 ML VIAL ONE (12:27)
[2020-03-25] MEDS ORDERED: Lidocaine 1% (PF) 30 ML VIAL ONE (12:29)
[2020-03-25] MEDS ORDERED: Midazolam HCl 2 mg/2 ml Vial ONE (13:02)
[2020-03-25] MEDS ORDERED: Fentanyl 100 MCG/2 ML VIAL ONE ×2 (13:02→15:09)
--- NOTE | 2020-03-25 13:17 | PDOC.HOSPP ---
- Subjective Encounter Date: 03/25/20 Encounter Time: 11:10 Subjective: Patient seen this morning. She has significant muscle spasm. Plan to go to the OR around 1 PM today. Her labs in normal range and vitals are stable. He did not had any bowel movement this morning. - Objective Vital Signs & Weight: Vital Signs (12 hours) Temp Pulse Resp BP BP Pulse Ox 03/25/20 11:07 97.6 F 64 20 157/67 H 97 03/25/20 08:00 96 03/25/20 07:22 97.5 F L 65 20 139/83 96 03/25/20 04:53 98.1 F 71 20 178/97 H 95 Weight Admit Weight 128 lb Weight 128 lb 8 oz I&O: 03/24/20 03/25/20 03/26/20 06:59 06:59 06:59 Intake Total 2040 2400 Output Total 700 Balance 1340 2400 Result Diagrams: 03/25/20 05:46 03/25/20 05:46 Hospitalist ROS - Medication Medications: Active Medications Generic Name Dose Route Start Last Admin Trade Name Freq PRN Reason Stop Dose Admin Acetaminophen 650 mg 03/22/20 18:25 03/24/20 15:35 Acetaminophen 325 Mg Tab PO 650 mg Q4H PRN Administration Headache/Fever/Mild Pain (1-3) Hydrocodone Bitart/Acetaminophen 1 tab 03/22/20 18:25 03/25/20 10:30 Hydrocodone/Acetaminophen 10/325 Mg Tablet PO 1 tab Q4H PRN Administration Moderate Pain (4-6) Alprazolam 0.25 mg 03/22/20 18:25 03/25/20 10:25 Alprazolam 0.25 Mg Tab PO 0.25 mg BID PRN Administration Anxiety Atorvastatin Calcium 80 mg 03/22/20 21:00 03/24/20 20:23 Atorvastatin Calcium 40 Mg Tab PO 80 mg HS NICOLE Administration Cyanocobalamin 1,000 mcg 03/23/20 09:00 03/25/20 08:14 Cyanocobalamin (Vitamin B-12) 1,000 Mcg Tab PO 1,000 mcg DAILY NICOLE Administration Fentanyl 25 mcg 03/22/20 21:00 03/22/20 20:21 Fentanyl 25 Mcg/Hour Patch TD 25 mcg Q3D NICOLE Administration Meropenem 500 mg/ Sodium 100 mls @ 0 mls/hr 03/22/20 20:00 03/25/20 10:26 Chloride IVPB 100 mls 0400,1200,2000 NICOLE Administration Potassium Chloride/Sodium Chloride 1,000 ml in 1,000 mls @ 75 mls/hr 03/24/20 10:15 03/25/20 01:08 Ns 0.9% W/ 20 Meq Kcl IV 1,000 mls .[id number] NICOLE Administration Levothyroxine Sodium 50 mcg 03/23/20 06:00 03/25/20 05:57 Levothyroxine Sodium 50 Mcg Tab PO 50 mcg 0600 NICOLE Administration Lidocaine 1 patch 03/22/20 18:30 03/24/20 18:53 Lidocaine 5% Patch TD 1 patch Q24HR NICOLE Administration Miscellaneous Medication 1 each 03/23/20 06:30 03/25/20 06:07 Lidocaine Patch Removal 1 Each TOP Not Given 0630 NICOLE Pantoprazole Sodium 40 mg 03/23/20 09:00 03/25/20 08:15 Pantoprazole 40 Mg Tab PO 40 mg DAILY NICOLE Administration Tramadol HCl 50 mg 03/24/20 19:37 03/24/20 19:51 Tramadol Hcl 50 Mg Tab PO 50 mg Q6H PRN Administration .BREAKTHROUGH Pain Zolpidem Tartrate 5 mg 03/23/20 10:14 03/24/20 21:12 Zolpidem Tartrate 5 Mg Tab PO 5 mg HSPRN PRN Administration Insomnia - Exam General Appearance: NAD, awake alert Eye: PERRL, anicteric sclera ENT: normocephalic atraumatic Neck: supple Heart: RRR, normal peripheral pulses Respiratory: CTAB, normal chest expansion Gastrointestinal: soft, normal bowel sounds Neurological: no focal deficits Musculoskeletal: generalized weakness Psychiatric: A&O x 3 Hosp A/P - Plan Colitis Dehydration Chronic back pain -Stool study negative for Campylobacter as well as Shiga toxin and C. difficile negative -Leukocytosis resolved -Patient seems to be improving. -Pain control with the fentanyl patch, Ultram as well as [place]. -Robaxin added Mild hypokalemia that has been replaced Abnormal troponin with a level of 0.04 likely due to metabolic mismatch with demand ischemia Patient on regular diet currently. possible kyphoplasty today.
[2020-03-25] MEDS ORDERED: Propofol 500 MG/50 ML VIAL ONE (13:27)
[2020-03-25] MEDS ORDERED: Ketamine 50 MG/ML (10ML VIAL) ONE (13:33)
[2020-03-25] MEDS ORDERED: Iothalamate Meglumine 60% 50 ML VIAL FS ONE (13:57)
[2020-03-25] MEDS ORDERED: Ondansetron PF 4 MG/2 ML Vial ONE (15:02)
[2020-03-25] MEDS ORDERED: Ondansetron HCl/PF 4 MG/2 ML Vial IVP PRN (15:04)
[2020-03-25] MEDS ORDERED: Promethazine HCl 25 MG/ML VIAL IM PRN (15:04)
[2020-03-25] MEDS ORDERED: Promethazine HCl 25 MG/ML VIAL SLOW IVP PRN (15:04)
--- NOTE | 2020-03-25 16:53 | RAD ---
THORACIC SPINE: 5 fluoroscopic images of thoracic spine from OR are presented. INDICATION: Intraoperative imaging during kyphoplasty procedure. FINDINGS/IMPRESSION: Images show instruments placed within the vertebral bodies during kyphoplasty procedure. There appear to be at least four thoracic vertebra kyphoplasty procedures. POS: OFF
[2020-03-25] MEDS: Methocarbamol 500 MG TAB PO PRN (18:05)
[2020-03-25] MEDS: Lidocaine 5% Patch TD SCH (18:12)
--- NOTE | 2020-03-25 21:11 | OP ---
DATE OF PROCEDURE: 03/25/2020 PREOPERATIVE DIAGNOSES: 1. Vertebral compression fracture of the T6 vertebra, initial encounter. 2. Compression fracture of the T9 vertebra, initial encounter. 3. Compression fracture of the T10 vertebra, initial encounter. 4. 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 POSTOPERATIVE DIAGNOSES: 1. Vertebral compression fracture of the T6 vertebra, initial encounter. 2. Compression fracture of the T9 vertebra, initial encounter. 3. Compression fracture of the T10 vertebra, initial encounter. 4. 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 PROCEDURE PERFORMED: 1. Kyphoplasty of T6. 2. Kyphoplasty of T9. 3. Kyphoplasty of T10. DESCRIPTION OF PROCEDURE: The patient was taken to the operating room and placed prone on the operating room table. A time-out was performed. She was placed under anesthesia. The back was prepped with DuraPrep and sterile drapes were applied. Using fluoroscopy, we located the right pedicle of T10. We anesthetized the skin and muscle layer down to the pedicle. Using fluoroscopy, we inserted an 11-gauge [place] trocar into the anesthetized skin and advanced it to the pedicle in an oblique fashion. We contacted the lateral edge of the pedicle and then we went to an AP view. We gradually advanced the trocar using a mallet until we got to the cortex of the vertebra. We took lateral views continuously to make sure we had gotten to the cortex prior to the needle passing the medial border of the pedicle so that we were assured that the trocar would not go through the central canal. This was done smoothly. After this, once the trocar was engaged in the vertebra, we took the stylet out and inserted a curved sheath. We gently used a mallet to tap this into the middle of the vertebra. We used AP and lateral views to confirm this. The sheath was removed after placing a curved balloon. We then inflated the curved balloon to approximately 200 psi with about 2 mL of contrast. We then aspirated this out and took the sheath and the balloon out and then inserted a curved Phuc needle. This was tapped into place. We then used Cortoss cement and injected this slowly while observing under continuous fluoro under lateral view to make sure that the cement would not extravasate posteriorly or into any venous structures. The cement trabeculated very well and surrounded the whole vertebral body without any extravasation. The curved needle was then removed. The stylet was placed back into the trocar and this was removed slowly under continuous fluoroscopy to ensure that the cement did not migrate out with the trocar. The same exact technique was performed for T9 with the left pedicle and then T6 with the right pedicle. Approximately 9 mL of Cortoss cement was used for the whole procedure and this was distributed evenly between the 3 vertebral bodies. Images were saved on fluoroscopy. Once the trocars were removed, we held pressure on the puncture sites for approximately 5 minutes to avoid intramuscular hematoma. We then placed sterile 4x4s and Medipore tape over the dressing and the patient was then transferred to PACU under stable condition. Job ID: [id number]
[2020-03-25] MEDS: Zolpidem Tartrate 5 MG TAB PO PRN (21:20)
[2020-03-25] MEDS: Atorvastatin Calcium 40 MG TAB PO SCH (21:21)
[2020-03-26] MEDS: HYDROcodone/Acetaminophen 10/325 mg Tablet PO PRN ×5 (03:18→20:45)
[2020-03-26] MEDS: Meropenem 500 MG in Sodium Chloride 0.9% 100 ML IVPB SCH ×3 (03:22→20:48)
[2020-03-26] MEDS: NS 0.9% w/ 20 MEQ KCL 1,000 ML/1,000 ML BAG IV SCH ×3 (04:05→16:59)
[2020-03-26] MEDS: Levothyroxine Sodium 50 MCG TAB PO SCH (06:10)
[2020-03-26] MEDS: Methocarbamol 500 MG TAB PO PRN ×3 (06:11→20:45)
[2020-03-26] MEDS: Lidocaine Patch Removal 1 EACH TOP SCH (06:16)
[2020-03-26 06:23] LABS: #Eosinphils 0.1 thou/uL (0.0-0.7); #Monocytes 0.7 thou/uL (0.11-0.59); #Neutrophils 6.8 thou/uL (1.40-6.50); %Basophils 0.4 % (0.0-1.0); %Monocytes 8.1 % (0.0-10.0); %Neutrophils 78.6 % (42.0-75.0); Hemoglobin 11.8 g/dL (12.0-16.0); Mean Corpuscular HGB CONC 33.2 g/dL (32.0-36.0); Mean Corpuscular Hemoglobin 31.4 pg (27.0-31.0); Mean Corpuscular Volume 94.8 fL (78.0-98.0); Mean Platelet Volume 7.9 fL (7.4-10.4); Platelet Count 159 thou/uL (130-400); Red Blood Cell (RBC) Count 3.75 mill/uL (4.20-5.40); White Blood Cell (WBC) Count 8.7 thou/uL (4.8-10.8)
[2020-03-26 06:45] LABS: Anion Gap 13 mmol/L (10-20); BUN (Urea Nitrogen) 8 mg/dL (9.8-20.1); Calc. Creatinine Clearance 54 mL/min (70-130); Calcium 8.3 mg/dL (7.8-10.44); Carbon Dioxide 23 mmol/L (23-31); Chloride 107 mmol/L (98-107); Estimated GFR-MDRD 81; Glucose 72 mg/dL (83-110); Potassium 4.2 mmol/L (3.5-5.1); Sodium 139 mmol/L (136-145)
[2020-03-26] MEDS: Cyanocobalamin (Vitamin B-12) 1,000 MCG TAB PO SCH (07:56)
[2020-03-26] MEDS ORDERED: Dextrose 5% in Water 1,000 ML IV PRN (09:52)
[2020-03-26] MEDS ORDERED: Dextrose 50% Abboject 50 ML SYRINGE SLOW IVP PRN (09:52)
[2020-03-26] MEDS: methylPREDNISolone 4 mg Tablet PO SCH ×3 (11:00→20:44)
--- NOTE | 2020-03-26 13:33 | PDOC.HOSPP ---
- Subjective Encounter Date: 03/26/20 Encounter Time: 11:30 Subjective: Patient has having some spasm on her back. Neurosurgery given her some steroid. Her spouse at bedside. Neurosurgery cleared her to start her back on Eliquis. - Objective Vital Signs & Weight: Vital Signs (12 hours) Temp Pulse Resp BP BP Pulse Ox 03/26/20 11:20 98 F 82 20 115/73 96 03/26/20 08:00 92 L 03/26/20 07:36 97.9 F 77 20 139/75 92 L 03/26/20 04:45 99.2 F 80 20 137/73 95 Weight Admit Weight 128 lb Weight 128 lb 8 oz I&O: 03/25/20 03/26/20 03/27/20 06:59 06:59 06:59 Intake Total 2400 1942 Output Total 1050 Balance 2400 892 Result Diagrams: 03/26/20 06:04 03/26/20 06:04 Additional Labs: Accuchecks 03/26/20 11:18 POC Glucose 79 Hospitalist ROS - Medication Medications: Active Medications Generic Name Dose Route Start Last Admin Trade Name Freq PRN Reason Stop Dose Admin Acetaminophen 650 mg 03/22/20 18:25 03/24/20 15:35 Acetaminophen 325 Mg Tab PO 650 mg Q4H PRN Administration Headache/Fever/Mild Pain (1-3) Hydrocodone Bitart/Acetaminophen 1 tab 03/22/20 18:25 03/26/20 13:10 Hydrocodone/Acetaminophen 10/325 Mg Tablet PO 1 tab Q4H PRN Administration Moderate Pain (4-6) Alprazolam 0.25 mg 03/22/20 18:25 03/25/20 10:25 Alprazolam 0.25 Mg Tab PO 0.25 mg BID PRN Administration Anxiety Atorvastatin Calcium 80 mg 03/22/20 21:00 03/25/20 21:21 Atorvastatin Calcium 40 Mg Tab PO 80 mg HS NICOLE Administration Cyanocobalamin 1,000 mcg 03/23/20 09:00 03/26/20 07:56 Cyanocobalamin (Vitamin B-12) 1,000 Mcg Tab PO 1,000 mcg DAILY NICOLE Administration Fentanyl 25 mcg 03/22/20 21:00 03/25/20 21:16 Fentanyl 25 Mcg/Hour Patch TD 25 mcg Q3D NICOLE Administration Meropenem 500 mg/ Sodium 100 mls @ 0 mls/hr 03/22/20 20:00 03/26/20 11:00 Chloride IVPB 100 mls 0400,1200,2000 NICOLE Administration Potassium Chloride/Sodium Chloride 1,000 ml in 1,000 mls @ 75 mls/hr 03/24/20 10:15 03/26/20 11:03 Ns 0.9% W/ 20 Meq Kcl IV 1,000 mls .[id number] NICOLE Administration Levothyroxine Sodium 50 mcg 03/23/20 06:00 03/26/20 06:10 Levothyroxine Sodium 50 Mcg Tab PO 50 mcg 0600 NICOLE Administration Lidocaine 1 patch 03/22/20 18:30 03/25/20 18:12 Lidocaine 5% Patch TD 1 patch Q24HR NICOLE Administration Methocarbamol 500 mg 03/25/20 13:16 03/26/20 06:11 Methocarbamol 500 Mg Tab PO 500 mg QIDPRN PRN Administration Muscle Spasm Methylprednisolone 8 mg 03/26/20 12:00 03/26/20 11:00 Methylprednisolone 4 Mg Tablet PO 03/26/20 21:01 8 mg 1200,1700,2100 NICOLE Administration Miscellaneous Medication 1 each 03/23/20 06:30 03/26/20 06:16 Lidocaine Patch Removal 1 Each TOP Not Given 0630 [facility] Pantoprazole Sodium 40 mg 03/23/20 09:00 03/26/20 07:56 Pantoprazole 40 Mg Tab PO 40 mg DAILY NICOLE Administration Tramadol HCl 50 mg 03/24/20 19:37 03/24/20 19:51 Tramadol Hcl 50 Mg Tab PO 50 mg Q6H PRN Administration .BREAKTHROUGH Pain Zolpidem Tartrate 5 mg 03/23/20 10:14 03/25/20 21:20 Zolpidem Tartrate 5 Mg Tab PO 5 mg HSPRN PRN Administration Insomnia - Exam General Appearance: NAD, awake alert Eye: PERRL ENT: normocephalic atraumatic Neck: supple Heart: RRR Respiratory: CTAB, normal chest expansion Gastrointestinal: soft, normal bowel sounds Neurological: cranial nerve grossly intact, no new deficit Musculoskeletal: generalized weakness Psychiatric: A&O x 3 Hosp A/P - Plan Colitis Dehydration Chronic back pain -Stool study negative for Campylobacter as well as Shiga toxin and C. difficile negative -Leukocytosis resolved -Patient seems to be improving. -Pain control with the fentanyl patch, Ultram as well as [place]. -Robaxin added Mild hypokalemia that has been replaced Abnormal troponin with a level of 0.04 likely due to metabolic mismatch with demand ischemia Patient on regular diet currently. possible kyphoplasty today. 1st Age-related osteoporosis causing pathological fracture on the spine. Status post kyphoplasty of T6 T9 and T11 with a preceded by vertebral compression fracture at T6 and T9 as well as T10 on . Short course of steroid muscle relaxant as well as analgesic Restart Eliquis Physical therapy Hypoglycemia -Added hypoglycemic protocol. Patient is not diabetic.
--- NOTE | 2020-03-26 15:28 | PQF ---
CLINICAL DOCUMENTATION CLARIFICATION FORM: Dear Dr. Spring CABRAL Date: 03/26/2020 Please exercise your independent, professional judgment in responding to the clarification form. Clinical indicators are provided on the bottom of this form for your review. Please check appropriate box(es): [ ] Type 1 NH (NSTEMI) [ x ] Type 2 NH (T2MI) secondary to: [ ] hypertension [ ] arrhythmia [ x ] Infection [ ] heart failure [ ] other [ ] Unstable Angina [ ] ACS [ ] Other: [ ] Takotsubo syndrome [ ] Other diagnosis [ ] Unable to determine In addition, please specify: Present on Admission (POA): [ ] Yes [ ] No [ ] Unable to determine For continuity of documentation, please document condition throughout progress notes and discharge summary. Thank You. To be completed by CDI/Coding staff for physician review: CLINICAL INDICATORS - SIGNS / SYMPTOMS / LABS / RESULTS AND LOCATION IN EMR 03/22 TROPONIN I 0.041 Presents for nausea, vomiting and diarrhea..Final Dx: atypical chest pain, ACS rule out (ED report) 03/22 Abnormal troponin with level of 0.04 likely due to metabolic mismatch with demand ischemia ( PN/Angelika) 03/23 - 03/26. RISKS / RESULTS AND LOCATION IN EMR History of hypertension,diabetes mellitus type 2, chronic left bundle branch block ( H&P/ Jagadeeshan) 03/22 TREATMENTS / RESULTS AND LOCATION IN EMR Supplemental oxygen (03/25) Continuous cardiac monitoring (03/22- present) Thank you! CDS Signature: Edilma Gooden RN Phone #: [phone] Date:03/26/2020 ANG
[2020-03-26] MEDS: Lidocaine 5% Patch TD SCH (17:10)
--- NOTE | 2020-03-26 18:05 | PRG ---
DATE OF SERVICE: 03/26/2020 SUBJECTIVE: The patient was evaluated and seen this morning. She is alert and oriented x4. She states that her fracture pain is much better controlled today. She has taken about half as much hydrocodone as the 24 hours prior. She does state that she has some pain in her right lower back as well as one of her lower left ribs at the midaxillary line. She states this is an aching pain and worse with movement. She denies any fever, chills, nausea, vomiting, diarrhea, chest pain, shortness of breath, or orthopnea. OBJECTIVE: VITAL SIGNS: Temperature is 98 degrees Fahrenheit, pulse of 82, respirations 20, O2 saturation 96% on room air, blood pressure 115/73. GENERAL: Alert and oriented x4, in no acute distress, lying in bed. CARDIOVASCULAR: Normal pulses and no peripheral vascular edema or swelling except for there is some edema in her right distal forearm just distal to the circumferential wrap that is over the dressing, which is likely a pressure dressing from a previous IV stick. RESPIRATORY: Effort is normal. Symmetric. Nonlabored respirations. No chest wall pain to palpation. SKIN: Warm and dry. MUSCULOSKELETAL: Reduced tenderness to palpation at the thoracic spine. Paraspinal muscles are paper machine back tender to palpation. Range of motion is better and the pain is mild. There still is lumbar paraspinal tenderness and paraspinal spasm, especially on the right side with extension. No vertebral spine tenderness. Straight leg raise negative bilaterally. Motor system is 5/5 in the bilateral lower extremity except for 4/5 with bilateral ankle dorsiflexion. Temperature sensation on the right lateral leg is diminished to cold. Otherwise, normal reflexes. Diminished patellar and absent Achilles reflex bilaterally. There is tenderness to palpation to the left T9 or T10 rib at the midaxillary line, which is mild to moderate. ASSESSMENT AND PLAN: Vertebral compression fractures: Kyphoplasty was performed successfully yesterday with no complications noted at this time. The pain has improved greatly. These fractures are stable now. I am not concerned with her movement or walking causing worsening of the fracture. Therefore, she can have a physical therapy assessment for evaluation for placement. Her left rib pain and her right lower back pain may be due to the positioning during the procedure. She does have a history of lumbar listhesis with lumbar stenosis, which could have been exacerbated by lying prone. I will start her on a Medrol Dosepak for this. Continue pain medicine as ordered. We are speaking with social work for disposition, which she will likely need a rehab facility. I will put in for a physical therapy consult today. Otherwise, we can restart her home medications as well as her Eliquis if the primary team agrees. We will continue the antibiotics as directed for her diarrhea per the primary team. Job ID: [id number]
[2020-03-26] MEDS: Apixaban 5 MG TAB PO SCH (20:44)
[2020-03-26] MEDS: Atorvastatin Calcium 40 MG TAB PO SCH (20:44)
[2020-03-26] MEDS: Zolpidem Tartrate 5 MG TAB PO PRN (20:45)
[2020-03-27] MEDS: NS 0.9% w/ 20 MEQ KCL 1,000 ML/1,000 ML BAG IV SCH ×2 (00:28→14:00)
[2020-03-27] MEDS: Meropenem 500 MG in Sodium Chloride 0.9% 100 ML IVPB SCH ×3 (03:36→20:58)
[2020-03-27] MEDS: Levothyroxine Sodium 50 MCG TAB PO SCH (05:53)
[2020-03-27] MEDS: HYDROcodone/Acetaminophen 10/325 mg Tablet PO PRN ×3 (05:53→20:49)
[2020-03-27 06:57] LABS: #Lymphocytes 0.5 thou/uL (1.20-3.40); #Monocytes 0.2 thou/uL (0.11-0.59); #Neutrophils 7.5 thou/uL (1.40-6.50); %Basophils 0.2 % (0.0-1.0); %Eosinophils 0.3 % (0.0-10.0); %Lymphocytes 6.4 % (21.0-51.0); %Monocytes 1.8 % (0.0-10.0); %Neutrophils 91.3 % (42.0-75.0); Hemoglobin 13.2 g/dL (12.0-16.0); Mean Corpuscular HGB CONC 33.2 g/dL (32.0-36.0); Mean Corpuscular Hemoglobin 31.7 pg (27.0-31.0); Mean Corpuscular Volume 95.5 fL (78.0-98.0); Platelet Count 181 thou/uL (130-400); RBC Distribution Width 14.8 % (11.5-14.5); Red Blood Cell (RBC) Count 4.17 mill/uL (4.20-5.40); White Blood Cell (WBC) Count 8.3 thou/uL (4.8-10.8)
[2020-03-27] MEDS: Lidocaine Patch Removal 1 EACH TOP SCH (07:00)
[2020-03-27 07:11] LABS: Anion Gap 12 mmol/L (10-20); BUN (Urea Nitrogen) 10 mg/dL (9.8-20.1); Calc. Creatinine Clearance 50 mL/min (70-130); Calcium 8.9 mg/dL (7.8-10.44); Carbon Dioxide 25 mmol/L (23-31); Chloride 104 mmol/L (98-107); Estimated GFR-MDRD 73; Glucose 224 mg/dL (83-110); Potassium 4.3 mmol/L (3.5-5.1); Sodium 137 mmol/L (136-145)
[2020-03-27] MEDS: methylPREDNISolone 4 mg Tablet PO SCH ×3 (08:36→17:35)
[2020-03-27] MEDS: Cyanocobalamin (Vitamin B-12) 1,000 MCG TAB PO SCH (09:00)
[2020-03-27] MEDS: Apixaban 5 MG TAB PO SCH ×2 (09:01→20:48)
[2020-03-27] MEDS ORDERED: Bisacodyl 5 MG TAB PO PRN (10:35)
--- NOTE | 2020-03-27 13:54 | PDOC.HOSPP ---
- Subjective Encounter Date: 03/27/20 Encounter Time: 12:10 Subjective: Patient just finished her physical therapy sitting in the chair. Appears that she has some swelling in her lower extremities. She is getting IV fluid. Minimal p.o. intake. - Objective Vital Signs & Weight: Vital Signs (12 hours) Temp Pulse Resp BP Pulse Ox 03/27/20 13:21 98.3 F 69 18 106/55 L 97 03/27/20 08:30 98.1 F 88 18 138/85 96 03/27/20 08:00 98.1 F 88 96 03/27/20 03:51 98 F 86 16 164/93 H 93 L Weight Admit Weight 128 lb Weight 128 lb 8 oz I&O: 03/26/20 03/27/20 03/28/20 06:59 06:59 06:59 Intake Total 1942 2411 240 Output Total 1050 450 Balance 892 1961 240 Result Diagrams: 03/27/20 06:36 03/27/20 06:36 Additional Labs: Accuchecks 03/27/20 03/27/20 03/26/20 11:18 05:01 21:00 POC Glucose 278 H 214 H 245 H 03/26/20 16:45 POC Glucose 165 H Hospitalist ROS - Medication Medications: Active Medications Generic Name Dose Route Start Last Admin Trade Name Freq PRN Reason Stop Dose Admin Acetaminophen 650 mg 03/22/20 18:25 03/24/20 15:35 Acetaminophen 325 Mg Tab PO 650 mg Q4H PRN Administration Headache/Fever/Mild Pain (1-3) Hydrocodone Bitart/Acetaminophen 1 tab 03/22/20 18:25 03/27/20 10:48 Hydrocodone/Acetaminophen 10/325 Mg Tablet PO 1 tab Q4H PRN Administration Moderate Pain (4-6) Alprazolam 0.25 mg 03/22/20 18:25 03/25/20 10:25 Alprazolam 0.25 Mg Tab PO 0.25 mg BID PRN Administration Anxiety Apixaban 5 mg 03/26/20 21:00 03/27/20 09:01 Apixaban 5 Mg Tab PO 5 mg BID NICOLE Administration Atorvastatin Calcium 80 mg 03/22/20 21:00 03/26/20 20:44 Atorvastatin Calcium 40 Mg Tab PO 80 mg HS NICOLE Administration Bisacodyl 10 mg 03/27/20 10:35 03/27/20 12:21 Bisacodyl 5 Mg Tab PO 10 mg DAILYPRN PRN Administration Constipation Cyanocobalamin 1,000 mcg 03/23/20 09:00 03/27/20 09:00 Cyanocobalamin (Vitamin B-12) 1,000 Mcg Tab PO 1,000 mcg DAILY NICOLE Administration Fentanyl 25 mcg 03/22/20 21:00 03/25/20 21:16 Fentanyl 25 Mcg/Hour Patch TD 25 mcg Q3D NICOLE Administration Meropenem 500 mg/ Sodium 100 mls @ 0 mls/hr 03/22/20 20:00 03/27/20 11:58 Chloride IVPB 100 mls 0400,1200,2000 NICOLE Administration Potassium Chloride/Sodium Chloride 1,000 ml in 1,000 mls @ 50 mls/hr 03/24/20 10:15 03/27/20 00:28 Ns 0.9% W/ 20 Meq Kcl IV 1,000 mls .Q20H NICOLE Administration Levothyroxine Sodium 50 mcg 03/23/20 06:00 03/27/20 05:53 Levothyroxine Sodium 50 Mcg Tab PO 50 mcg 0600 NICOLE Administration Lidocaine 1 patch 03/22/20 18:30 03/26/20 17:10 Lidocaine 5% Patch TD 1 patch Q24HR NICOLE Administration Methocarbamol 500 mg 03/25/20 13:16 03/26/20 20:45 Methocarbamol 500 Mg Tab PO 500 mg QIDPRN PRN Administration Muscle Spasm Methylprednisolone 4 mg 03/27/20 08:00 03/27/20 12:21 Methylprednisolone 4 Mg Tablet PO 03/27/20 18:01 4 mg 0800,1300,1800 NICOLE Administration Miscellaneous Medication 1 each 03/23/20 06:30 03/27/20 07:00 Lidocaine Patch Removal 1 Each TOP 1 each 0630 NICOLE Administration Pantoprazole Sodium 40 mg 03/23/20 09:00 03/27/20 09:01 Pantoprazole 40 Mg Tab PO 40 mg DAILY NICOLE Administration Tramadol HCl 50 mg 03/24/20 19:37 03/24/20 19:51 Tramadol Hcl 50 Mg Tab PO 50 mg Q6H PRN Administration .BREAKTHROUGH Pain Zolpidem Tartrate 5 mg 03/23/20 10:14 03/26/20 20:45 Zolpidem Tartrate 5 Mg Tab PO 5 mg HSPRN PRN Administration Insomnia - Exam General Appearance: NAD, awake alert Eye: PERRL ENT: normocephalic atraumatic Neck: supple Heart: RRR, normal peripheral pulses Respiratory: CTAB, normal chest expansion Gastrointestinal: soft, normal bowel sounds Extremities: 1+ LE edema Neurological: cranial nerve grossly intact, no focal deficits Musculoskeletal: generalized weakness Psychiatric: A&O x 3 Hosp A/P - Plan Colitis Dehydration Chronic back pain -Stool study negative for Campylobacter as well as Shiga toxin and C. difficile negative -Leukocytosis resolved -Patient seems to be improving. -Pain control with the fentanyl patch, Ultram as well as [place]. -Robaxin added Mild hypokalemia that has been replaced Abnormal troponin with a level of 0.04 likely due to metabolic mismatch with demand ischemia Patient on regular diet currently. possible kyphoplasty today. 1st Age-related osteoporosis causing pathological fracture on the spine. Status post kyphoplasty of T6 T9 and T11 with a preceded by vertebral compression fracture at T6 and T9 as well as T10 on . Short course of steroid muscle relaxant as well as analgesic Restart Eliquis Physical therapy Hypoglycemia -Added hypoglycemic protocol. Patient is not diabetic. 2nd Ambulating with physical therapy. Restarted on Eliquis. Lower extremity edema Due to limited ambulation as well as getting IV fluid we will reduce the IV flu id. - If she has continued swelling tomorrow, I will try trial of diuretics. Status post kyphoplasty March 25 stable - Otherwise continue with therapy and possible rehab
[2020-03-27] MEDS: Ondansetron PF 4 MG/2 ML Vial IVP PRN (13:57)
[2020-03-27] MEDS: Methocarbamol 500 MG TAB PO PRN ×2 (14:11→17:53)
[2020-03-27] MEDS ORDERED: Bisacodyl 10 MG SUPP PR PRN (15:07)
[2020-03-27] MEDS: Lidocaine 5% Patch TD SCH (17:35)
--- NOTE | 2020-03-27 17:45 | PRG ---
DATE OF SERVICE: 03/27/2020 SUBJECTIVE: The patient was evaluated at noon. She is alert and oriented x4. She states her fracture pain is much better controlled today. She has taken about five tablets of [place] 10/325 over the last 24 hours, which is much reduced from previous. She does not have her fentanyl patch on anymore. She states that her pain in her lower back has decreased, yet is still aching. Her left rib pain has decreased substantially. The pain again is described as aching, worse with movement, and nonradiating. She denies any fever, chills, nausea, vomiting, diarrhea, chest pain, shortness of breath or orthopnea. PHYSICAL EXAMINATION: VITAL SIGNS: This morning, afebrile at 98.1, pulse 88, respirations 18, O2 saturation 96 on room air, and pressure is 138/85. GENERAL: Alert and oriented x4, in no acute distress, sitting on the side of the bed. CARDIOVASCULAR: Normal pulses and no peripheral vascular edema or swelling. The edema in the right upper extremity has decreased since removal of the dressing. RESPIRATORY: Efforts normal, symmetric, nonlabored respirations. No chest wall discomfort to palpation. SKIN: Warm and dry. MUSCULOSKELETAL: Reduced tenderness to palpation of the thoracic spine. Paraspinal muscles are paper cone machine tender to palpation. Range of motion is better and pain is mild. Continues to have lumbar paraspinal muscle tenderness, especially on the right side with extension. No vertebral spine tenderness. Straight leg raise is negative bilaterally. Motor systems are 5/5 in the bilateral lower extremities except for 4/5 with bilateral ankle dorsiflexion. Normal reflexes except for diminished bilateral Achilles reflex. Temperature sensation on the right leg is diminished to cold. Tenderness to palpation to the left T9 and T10 rib at the midaxillary line is now mild. ASSESSMENT AND PLAN: Vertebral compression fractures. The patient's pain has diminished greatly since kyphoplasty. Fractures are stable. She has had a Physical Therapy assessment and we are waiting for the evaluation. I believe she would do very well with outpatient rehab prior to going home and this would greatly reduce her morbidity and risk of readmission. We will continue the Medrol Franco until she finishes that, continue pain medication of [place] 10/325 up to six tablets daily if needed. As far as the Pain Management Team is concerned, we are okay with discharging her to outpatient rehab if the primary team is also in agreement with this. We will defer this to the primary team and Social Work. Job ID: [id number]
[2020-03-27] MEDS: Atorvastatin Calcium 40 MG TAB PO SCH (20:48)
[2020-03-27] MEDS ORDERED: methylPREDNISolone 4 mg Tablet PO SCH (21:00)
[2020-03-28] MEDS: ALPRAZolam 0.25 MG TAB PO PRN (01:01)
[2020-03-28] MEDS: Methocarbamol 500 MG TAB PO PRN (01:01)
[2020-03-28] MEDS: Meropenem 500 MG in Sodium Chloride 0.9% 100 ML IVPB SCH ×2 (04:43→15:20)
[2020-03-28 05:28] LABS: #Lymphocytes 0.8 thou/uL (1.20-3.40); #Monocytes 0.3 thou/uL (0.11-0.59); #Neutrophils 8.8 thou/uL (1.40-6.50); %Basophils 0.1 % (0.0-1.0); %Eosinophils 0.2 % (0.0-10.0); %Lymphocytes 8.4 % (21.0-51.0); %Monocytes 2.6 % (0.0-10.0); %Neutrophils 88.7 % (42.0-75.0); Hemoglobin 12.6 g/dL (12.0-16.0); Mean Corpuscular HGB CONC 33.8 g/dL (32.0-36.0); Mean Corpuscular Volume 94.5 fL (78.0-98.0); Mean Platelet Volume 7.9 fL (7.4-10.4); Platelet Count 210 thou/uL (130-400); RBC Distribution Width 15.2 % (11.5-14.5); Red Blood Cell (RBC) Count 3.94 mill/uL (4.20-5.40); White Blood Cell (WBC) Count 9.9 thou/uL (4.8-10.8)
[2020-03-28 05:47] LABS: Anion Gap 13 mmol/L (10-20); BUN (Urea Nitrogen) 12 mg/dL (9.8-20.1); Calc. Creatinine Clearance 54 mL/min (70-130); Calcium 8.7 mg/dL (7.8-10.44); Carbon Dioxide 26 mmol/L (23-31); Chloride 106 mmol/L (98-107); Estimated GFR-MDRD 81; Glucose 243 mg/dL (83-110); Potassium 4.3 mmol/L (3.5-5.1); Sodium 141 mmol/L (136-145)
[2020-03-28] MEDS: Levothyroxine Sodium 50 MCG TAB PO SCH (05:53)
[2020-03-28] MEDS: Lidocaine Patch Removal 1 EACH TOP SCH (06:01)
[2020-03-28 08:05] VITALS: TEMP 98
[2020-03-28] MEDS: Cyanocobalamin (Vitamin B-12) 1,000 MCG TAB PO SCH (08:05)
[2020-03-28] MEDS: Apixaban 5 MG TAB PO SCH (08:05)
[2020-03-28] MEDS: methylPREDNISolone 4 mg Tablet PO SCH ×2 (08:06→11:42)
[2020-03-28] MEDS: traMADol HCl 50 MG TAB PO PRN (09:42)
[2020-03-28] MEDS ORDERED: Furosemide 40 MG/4 ML VIAL SLOW IVP SCH (10:00)
[2020-03-28] MEDS: Ondansetron PF 4 MG/2 ML Vial IVP PRN (11:42)
--- NOTE | 2020-03-28 14:38 | PDOC.DS.DS ---
Provider - Provider Date of Admission: 03/22/20 18:20 Admitting Provider: Vonnie De La Paz MD Primary Care Physician: Amparo Espitia Course - Hospital Course Hospital Course: 85-year-old female presented with Colitis Dehydration -Stool study negative for Campylobacter as well as Shiga toxin and C. difficile negative -Leukocytosis resolved Mild hypokalemia that has been replaced Abnormal troponin with a level of 0.04 likely due to metabolic mismatch with demand ischemia Chronic back pain Age-related osteoporosis causing pathological fracture on the spine. Status post kyphoplasty of T6 T9 and T11 with a preceded by vertebral compression fracture at T6 and T9 as well as T10 on . Short course of steroid muscle relaxant as well as analgesic Restarted Eliquis Lower extremity edema Due to limited ambulation as well as being on medrol dose and IV fluid -dose of lasix given Patient was discharged hemodynamically in stable condition to the rehab today. Discharge time over 30 minutes. Resuscitation Status: 03/22/20 18:19 Resuscitation Status Routine Resuscitation Status: FULL: Full Resuscitation - Labs Lab Results: 03/28/20 05:08 03/28/20 05:08 Abnormal Lab Results - Last 48 hrs 03/27/20 06:36: RBC 4.17 L, MCH 31.7 H, RDW 14.8 H, Neutrophils % 91.3 H, Lymphocytes % 6.4 L, Neutrophils # 7.5 H, Lymphocytes # 0.5 L 03/28/20 05:08: RBC 3.94 L, MCH 32.0 H, RDW 15.2 H, Neutrophils % 88.7 H, Lymphocytes % 8.4 L, Neutrophils # 8.8 H, Lymphocytes # 0.8 L 03/28/20 09:49: B-Natriuretic Peptide 143.4 H Microbiology - Entire Visit 03/22/20 19:18 Stool Stool Culture - Final 03/22/20 19:18 Stool Campylobacter Antigen Assay - Final 03/22/20 19:18 Stool Shiga Toxin Test - Final 03/22/20 18:18 Stool C. difficile GDH Antigen & Toxins - Final 03/22/20 18:25 Stool Escherichia coli 0157 Culture - Final - Physical Exam Vitals: Vital Signs (12 hours) Temp Pulse Resp BP Pulse Ox 03/28/20 08:00 98.0 F 87 16 117/67 97 03/28/20 04:00 97.5 F L 75 16 167/71 H 97 Weight Admit Weight 128 lb Weight 128 lb 8 oz Physical Exam: The patient was seen and examined on the day of discharge. Plan to be discharged to the rehab. Plan - Discharge Medications Prescriptions: Apixaban [Eliquis] 2.5 mg PO BID 30 Days #60 tab Home Medications: Medication Instructions Recorded Confirmed Type ALPRAZolam [Xanax] 0.25 mg PO BID PRN 12/12/17 03/22/20 History Atorvastatin Calcium 80 mg PO HS 12/12/17 03/22/20 History Clopidogrel Bisulfate [Clopidogrel] 1 tab PO DAILY 12/12/17 03/22/20 History Cyanocobalamin/Salcaprozat Sod 1,000 mcg PO DAILY 12/12/17 03/22/20 History [Eligen B12 Tablet] Dexlansoprazole [Dexilant] 1 cap PO DAILY 12/12/17 03/22/20 History Levothyroxine Sodium [Tirosint] 50 mcg PO 0600 12/12/17 03/22/20 History Lidocaine 5% Patch [Lidoderm 5% 1 patch TOP Q24HR 12/12/17 03/22/20 History Patch] Risedronate Sodium [Risedronate 35 mg PO Q7DAYS 12/12/17 03/22/[address]] traMADol HCl [Tramadol HCl] 1 tab PO BID PRN 12/12/17 03/22/20 History HYDROcodone Bit/APAP 5/325 [[place]] 1 tab PO Q4H PRN tab 12/16/17 03/22/20 Rx HYDROcodone Bit/APAP 5/325 [[place]] 2 tab PO Q4H PRN tab 12/16/17 03/22/20 Rx Apixaban [Eliquis] 2.5 mg PO BID 30 Days #60 tab 03/28/20 Rx Zolpidem Tartrate [Ambien] 5 mg PO HSPRN PRN tab 03/28/20 Rx methylPREDNISolone [Medrol] 4 mg PO 0800 tab 03/28/20 Rx methylPREDNISolone [Medrol] 4 mg PO 0800,1200,1700 tab 03/28/20 Rx methylPREDNISolone [Medrol] 4 mg PO 0800,1200,1700,2100 tab 03/28/20 Rx methylPREDNISolone [Medrol] 4 mg PO 0800,1700 tab 03/28/20 Rx Allergies: levofloxacin [From Levaquin] Allergy (Intermediate, Verified 12/12/17 19:34) Rash immediate redness to iv site upon administration in ER morphine Allergy (Verified 12/12/17 19:34) Penicillins Allergy (Verified 12/12/17 19:34) - Discharge Instructions Activity:: Activity as Tolerated Nourishment:: Heart Healthy Diet - Follow up Plan Referrals: Amparo Espitia MD [Primary Care Provider] - Disposition: REHABILITATION INPATIENT Quality - Care Measures CORE MEASURES:: N/A
[2020-03-28 15:06] VITALS: BP 152/85
[2020-03-29] MEDS ORDERED: methylPREDNISolone 4 mg Tablet PO SCH (08:00)
[2020-03-30] MEDS ORDERED: methylPREDNISolone 4 mg Tablet PO SCH (08:00)
--- NOTE | 2020-03-30 14:35 | EKG ---
Test Reason : Blood Pressure : / mmHG Vent. Rate : 092 BPM Atrial Rate : 092 BPM P-R Int : 272 ms QRS Dur : 156 ms QT Int : 400 ms P-R-T Axes : 000 -63 115 degrees QTc Int : 494 ms Sinus rhythm with 1st degree A-V block with occasional Premature ventricular complexes Left axis deviation Left bundle branch block Abnormal ECG No ST elevation/HI No Sgarbossa Confirmed by RUCHI COTTON M.D. ([id number]), newspaper managing editor MAYO DUARTE ([id number]) on 03/30/2020 2:35:17 PM Referred By: Confirmed By:RUCHI COTTON M.D.
[2020-03-31] MEDS ORDERED: methylPREDNISolone 4 mg Tablet PO SCH (08:00)
== END 2020-03-28 14:18 | DRG 515 ==
LOC: ERS 14:18 → T4-B 18:20
PROVIDERS: ADMIT Internal Medicine; ATTEND Internal Medicine
PROC: 0PS43ZZ Reposition Thoracic Vertebra, Percutaneous Approach (ICD-10-PCS; principal; 2020-03-25)
PROC: 0PU43JZ Supplement Thoracic Vertebra with Synthetic Substitute, Percutaneous Approach (ICD-10-PCS; 2020-03-25)
DX: M80.88XA Other osteoporosis with current pathological fracture, vertebra(e), initial encounter for fracture (principal); I21.A1 Myocardial infarction type 2; K52.9 Noninfective gastroenteritis and colitis, unspecified; E86.0 Dehydration; Z20.828 Contact with and (suspected) exposure to other viral communicable diseases; I10 Essential (primary) hypertension; G89.29 Other chronic pain; D72.829 Elevated white blood cell count, unspecified; E87.6 Hypokalemia; E03.9 Hypothyroidism, unspecified; I25.10 Atherosclerotic heart disease of native coronary artery without angina pectoris; E11.649 Type 2 diabetes mellitus with hypoglycemia without coma; Z90.49 Acquired absence of other specified parts of digestive tract; Z87.891 Personal history of nicotine dependence; Z88.0 Allergy status to penicillin; Z88.1 Allergy status to other antibiotic agents; Z88.5 Allergy status to narcotic agent; Z79.01 Long term (current) use of anticoagulants; Z79.890 Hormone replacement therapy; Z79.899 Other long term (current) drug therapy; Z95.0 Presence of cardiac pacemaker
CPT/HCPCS: 36415; 36416; 51701; 71045; 72072; 74177; 76000; 80048; 80053; 81003; 81015; 82550; 82553; 83690; 83735; 83880; 84484; 85025; 85610; 85730; 87045; 87046; 87324; 87427; 87449; 87635; 93005; 96374; 96375; J1650; J1885; J1940; J2001; J2185; J2250; J2405; J2704; J3010; J3480; J3490; J7509; Q9967; S0020; U0003

== ENCOUNTER 2020-11-02 00:17 | Emergency (ER) | payer MEDICARE ==
[2020-11-02] MEDS ORDERED: Acetaminophen 325 MG TAB ONE (01:13)
[2020-11-02] MEDS ORDERED: Ketorolac Tromethamine 30 MG/ML VIAL ONE (01:22)
[2020-11-02] MEDS ORDERED: Ondansetron ODT 4 MG TAB ONE (01:58)
== END 2020-11-02 01:59 | disposition home or self-care (01) ==
LOC: ERS 00:17
DX: M25.511 Pain in right shoulder (principal); E11.9 Type 2 diabetes mellitus without complications; I10 Essential (primary) hypertension; Z87.891 Personal history of nicotine dependence; Z79.899 Other long term (current) drug therapy; Z79.01 Long term (current) use of anticoagulants
CPT/HCPCS: 96374; J1885; Q0162

== ENCOUNTER 2020-12-19 12:10 | Emergency (ER) | payer MEDICARE ==
[2020-12-19 14:14] LABS: #Monocytes 0.5 thou/uL (0.11-0.59); #Neutrophils 11.6 thou/uL (1.40-6.50); %Basophils 0.2 % (0.0-1.0); %Eosinophils 0.2 % (0.0-10.0); %Lymphocytes 7.7 % (21.0-51.0); %Monocytes 3.4 % (0.0-10.0); %Neutrophils 88.5 % (42.0-75.0); Hemoglobin 13.3 g/dL (12.0-16.0); Mean Corpuscular HGB CONC 33.7 g/dL (32.0-36.0); Mean Corpuscular Hemoglobin 30.8 pg (27.0-31.0); Mean Corpuscular Volume 91.4 fL (78.0-98.0); Mean Platelet Volume 7.9 fL (7.4-10.4); Platelet Count 226 thou/uL (130-400); RBC Distribution Width 14.8 % (11.5-14.5); Red Blood Cell (RBC) Count 4.31 mill/uL (4.20-5.40); White Blood Cell (WBC) Count 13.1 thou/uL (4.8-10.8)
[2020-12-19 14:36] LABS: ALT (SGPT) 14 U/L (8-55); AST (SGOT) 19 U/L (5-34); Albumin 4.2 g/dL (3.4-4.8); Alkaline Phosphatase 91 U/L (40-110); Anion Gap 15 mmol/L (10-20); BUN (Urea Nitrogen) 20 mg/dL (9.8-20.1); Bilirubin, Total 1.2 mg/dL (0.2-1.2); Calc. Creatinine Clearance 0 mL/min (70-130); Calcium 10.2 mg/dL (7.8-10.44); Carbon Dioxide 24 mmol/L (23-31); Chloride 105 mmol/L (98-107); Globulin 3.2 g/dL (2.4-3.5); Glucose 144 mg/dL (83-110); Protein, Total 7.4 g/dL (5.8-8.1); Sodium 140 mmol/L (136-145)
== END 2020-12-19 14:12 | disposition left against medical advice (07) ==
LOC: ERS 12:10
DX: Z53.21 Procedure and treatment not carried out due to patient leaving prior to being seen by health care provider (principal)
CPT/HCPCS: 36415; 71045; 80053; 83880; 84484; 85025

== ENCOUNTER 2021-12-03 10:28 | Emergency (ER) | payer MEDICARE ==
[2021-12-03] MEDS ORDERED: Acetaminophen 500 MG TAB ONE (14:57)
[2021-12-03] MEDS ORDERED: Fentanyl 100 MCG/2 ML VIAL ONE (16:14)
== END 2021-12-03 16:55 | disposition home or self-care (01) ==
LOC: ERS 10:28
DX: M48.56XA Collapsed vertebra, not elsewhere classified, lumbar region, initial encounter for fracture (principal); I10 Essential (primary) hypertension; E78.5 Hyperlipidemia, unspecified; E11.9 Type 2 diabetes mellitus without complications; E03.9 Hypothyroidism, unspecified; Z79.899 Other long term (current) drug therapy
CPT/HCPCS: 72131; 96372; J3010

== ENCOUNTER 2021-12-04 09:39 | Inpatient (IN) | payer MEDICARE ==
[2021-12-04 11:26] LABS: Bacteria/HPF 4+ HPF (None Seen); Bilirubin Negative (Negative); Blood, Urine Negative (Negative); Glucose, Urine (Dipstick) Normal (Negative); Ketone, Urine Negative (Negative); Leukocyte 500 Leu/uL (Negative); Nitrite Negative (Negative); Protein, Urine (Dipstick) 10 mg/dL (Neg-Trace); Specific Gravity, Urine 1.021 (1.002-1.036); Squamous Epithelial 0-3 HPF (0-3); WBC/HPF Greater than 50 HPF (0-3); pH, Urine 5.5 (5.0-9.0)
[2021-12-04 11:27] LABS: Clarity Cloudy (Clear)
[2021-12-04] MEDS ORDERED: Ciprofloxacin 500 MG TAB ONE (12:00)
[2021-12-04 12:02] LABS: Hemoglobin 12.8 g/dL (12.0-16.0); Mean Corpuscular HGB CONC 32.1 g/dL (32.0-36.0); Mean Corpuscular Hemoglobin 31.2 pg (27.0-31.0); Mean Corpuscular Volume 97.2 fL (78.0-98.0); Mean Platelet Volume 8.5 fL (7.4-10.4); Platelet Count 169 thou/uL (130-400); RBC Distribution Width 15.8 % (11.5-14.5); White Blood Cell (WBC) Count 14.9 thou/uL (4.8-10.8)
[2021-12-04 12:10] LABS: ALT (SGPT) 35 U/L (8-55); AST (SGOT) 22 U/L (5-34); Albumin 3.8 g/dL (3.4-4.8); Alkaline Phosphatase 61 U/L (40-110); Anion Gap 15 mmol/L (10-20); BUN (Urea Nitrogen) 24 mg/dL (9.8-20.1); Bilirubin, Total 1.8 mg/dL (0.2-1.2); Calc. Creatinine Clearance 0 mL/min (70-130); Calcium 9.5 mg/dL (7.8-10.44); Carbon Dioxide 24 mmol/L (23-31); Chloride 101 mmol/L (98-107); Estimated GFR 84; Globulin 2.6 g/dL (2.4-3.5); Glucose 161 mg/dL (83-110); Potassium 4.3 mmol/L (3.5-5.1); Protein, Total 6.4 g/dL (5.8-8.1); Sodium 136 mmol/L (136-145)
[2021-12-04] MEDS ORDERED: Ondansetron PF 4 MG/2 ML Vial IVP PRN (12:20)
[2021-12-04] MEDS ORDERED: Dextrose 50% Abboject 50 ML SYRINGE SLOW IVP PRN (12:28)
[2021-12-04] MEDS ORDERED: Dextrose 5% in Water 1,000 ML IV PRN (12:28)
[2021-12-04 12:37] LABS: #Eosinphils 0.1 thou/uL (0.0-0.7); #Lymphocytes 0.7 thou/uL (1.20-3.40); #Monocytes 1.2 thou/uL (0.11-0.59); #Neutrophils 12.8 thou/uL (1.40-6.50); %Basophils 0.2 % (0.0-1.0); %Eosinophils 0.5 % (0.0-10.0); %Monocytes 8.3 % (0.0-10.0); Burr Cells SLIGHT = 2-5 cells (100X) (0-1/hpf); Lymphocytes 3 % (21-51); MDiff Complete? YES; Monocytes 8 % (0-10); Neutrophil 89 % (42-75); Ovalocytes SLIGHT = 2-5 cells (100X) (0-1/hpf); Platelet Morphology Comment Appears Adequate; Polychromasia SLIGHT = 2-3 cells (100X) (0-2/hpf)
[2021-12-04] MEDS: Lidocaine 5% Patch TD SCH (16:29)
[2021-12-04] MEDS: HYDROcodone/Acetaminophen 7.5/325 mg Tablet PO PRN ×2 (17:30→21:13)
[2021-12-04] MEDS: HumaLOG 300 UNITS/3 ML VIAL SC PRN ×2 (17:31→21:46)
[2021-12-04 18:35] VITALS: BMI 20.7
[2021-12-04] MEDS: Acetaminophen 325 MG TAB PO PRN ×2 (20:02→23:34)
[2021-12-04] MEDS: Nitrofurantoin Monohyd/M-Cryst 100 MG CAP PO SCH (20:02)
[2021-12-04 20:19] LABS: SARS-CoV-2 NAA Rapid Test Not Detected (NotDetected)
[2021-12-04] MEDS: Atorvastatin Calcium 40 MG TAB PO SCH (21:14)
[2021-12-04] MEDS: ALPRAZolam 0.25 MG TAB PO PRN (21:16)
[2021-12-04] MEDS: Transdermal Patch Removal TOP SCH (23:36)
[2021-12-05] MEDS: HYDROcodone/Acetaminophen 7.5/325 mg Tablet PO PRN ×5 (00:58→18:31)
[2021-12-05] MEDS: Levothyroxine Sodium 50 MCG TAB PO SCH (05:07)
[2021-12-05 06:43] LABS: #Eosinphils 0.1 thou/uL (0.0-0.7); #Lymphocytes 1.4 thou/uL (1.20-3.40); #Neutrophils 7.2 thou/uL (1.40-6.50); %Basophils 0.2 % (0.0-1.0); %Eosinophils 0.8 % (0.0-10.0); %Lymphocytes 14.5 % (21.0-51.0); %Monocytes 10.5 % (0.0-10.0); Hemoglobin 12.5 g/dL (12.0-16.0); Mean Corpuscular HGB CONC 32.8 g/dL (32.0-36.0); Mean Corpuscular Volume 97.5 fL (78.0-98.0); Mean Platelet Volume 8.4 fL (7.4-10.4); Platelet Count 153 thou/uL (130-400); RBC Distribution Width 15.8 % (11.5-14.5); Red Blood Cell (RBC) Count 3.91 mill/uL (4.20-5.40); White Blood Cell (WBC) Count 9.7 thou/uL (4.8-10.8)
[2021-12-05 06:59] LABS: Anion Gap 12 mmol/L (10-20); BUN (Urea Nitrogen) 23 mg/dL (9.8-20.1); Calc. Creatinine Clearance 42 mL/min (70-130); Calcium 9.3 mg/dL (7.8-10.44); Carbon Dioxide 29 mmol/L (23-31); Chloride 102 mmol/L (98-107); Estimated GFR 71; Glucose 132 mg/dL (83-110); Potassium 4.2 mmol/L (3.5-5.1); Sodium 139 mmol/L (136-145)
[2021-12-05] MEDS: Docusate 100 MG CAP PO SCH (07:48)
[2021-12-05] MEDS: Acetaminophen 325 MG TAB PO PRN ×3 (07:50→20:21)
[2021-12-05] MEDS: Polyethylene Glycol 3350 17 GM Packet PO SCH (07:50)
[2021-12-05] MEDS: Nitrofurantoin Monohyd/M-Cryst 100 MG CAP PO SCH ×2 (07:50→20:20)
[2021-12-05] MEDS: HumaLOG 300 UNITS/3 ML VIAL SC PRN ×2 (11:55→17:13)
[2021-12-05] MEDS: ALPRAZolam 0.25 MG TAB PO PRN (14:32)
[2021-12-05] MEDS: Lidocaine 5% Patch TD SCH (14:33)
[2021-12-05] MEDS: Atorvastatin Calcium 40 MG TAB PO SCH (20:21)
[2021-12-06] MEDS: HYDROcodone/Acetaminophen 7.5/325 mg Tablet PO PRN ×5 (00:19→21:14)
[2021-12-06] MEDS: ALPRAZolam 0.25 MG TAB PO PRN ×2 (00:19→12:57)
[2021-12-06] MEDS: Transdermal Patch Removal TOP SCH (00:34)
[2021-12-06] MEDS: Levothyroxine Sodium 50 MCG TAB PO SCH (05:16)
[2021-12-06] MEDS: Polyethylene Glycol 3350 17 GM Packet PO SCH (08:58)
[2021-12-06] MEDS: Nitrofurantoin Monohyd/M-Cryst 100 MG CAP PO SCH ×2 (08:58→21:14)
[2021-12-06] MEDS: Docusate 100 MG CAP PO SCH (08:58)
[2021-12-06] MEDS ORDERED: Bisacodyl 10 MG SUPP PR PRN (09:55)
[2021-12-06] MEDS: Lidocaine 5% Patch TD SCH (11:19)
[2021-12-06] MEDS: Acetaminophen 325 MG TAB PO PRN (11:21)
[2021-12-06] MEDS: HumaLOG 300 UNITS/3 ML VIAL SC PRN ×2 (14:58→17:53)
[2021-12-06] MEDS: Calcitonin,Salmon,Synthetic 200 Units 3.7 ML PUMP R NARE SCH (21:13)
[2021-12-06] MEDS: Atorvastatin Calcium 40 MG TAB PO SCH (21:14)
[2021-12-07] MEDS: Transdermal Patch Removal TOP SCH
[2021-12-07] MEDS: HYDROcodone/Acetaminophen 7.5/325 mg Tablet PO PRN ×4 (05:04→18:18)
[2021-12-07] MEDS: ALPRAZolam 0.25 MG TAB PO PRN ×2 (05:05→21:58)
[2021-12-07] MEDS: Levothyroxine Sodium 50 MCG TAB PO SCH (05:05)
[2021-12-07] MEDS: Nitrofurantoin Monohyd/M-Cryst 100 MG CAP PO SCH ×2 (09:50→21:58)
[2021-12-07] MEDS: Polyethylene Glycol 3350 17 GM Packet PO SCH (09:50)
[2021-12-07] MEDS: Docusate 100 MG CAP PO SCH (09:50)
[2021-12-07] MEDS: Lidocaine 5% Patch TD SCH (14:03)
[2021-12-07] MEDS ORDERED: Ketorolac Tromethamine 30 MG/ML VIAL IVP SCH (16:00)
[2021-12-07] MEDS: HumaLOG 300 UNITS/3 ML VIAL SC PRN (17:13)
[2021-12-07] MEDS: Calcitonin,Salmon,Synthetic 200 Units 3.7 ML PUMP L NARE SCH (18:24)
[2021-12-07] MEDS: Atorvastatin Calcium 40 MG TAB PO SCH (21:58)
[2021-12-07] MEDS: Acetaminophen 325 MG TAB PO PRN (21:58)
[2021-12-08] MEDS: Transdermal Patch Removal TOP SCH (00:39)
[2021-12-08] MEDS: HYDROcodone/Acetaminophen 7.5/325 mg Tablet PO PRN ×5 (02:52→19:57)
[2021-12-08] MEDS: Levothyroxine Sodium 50 MCG TAB PO SCH (06:22)
[2021-12-08] MEDS: Polyethylene Glycol 3350 17 GM Packet PO SCH (09:20)
[2021-12-08] MEDS: Docusate 100 MG CAP PO SCH (09:20)
[2021-12-08] MEDS: Nitrofurantoin Monohyd/M-Cryst 100 MG CAP PO SCH ×2 (09:20→19:57)
[2021-12-08] MEDS: ALPRAZolam 0.25 MG TAB PO PRN (09:33)
[2021-12-08] MEDS: HumaLOG 300 UNITS/3 ML VIAL SC PRN ×3 (11:58→22:51)
[2021-12-08] MEDS: Lidocaine 5% Patch TD SCH (14:19)
[2021-12-08] MEDS: Atorvastatin Calcium 40 MG TAB PO SCH (19:57)
[2021-12-08] MEDS: Gabapentin 100 MG CAP PO SCH (19:57)
[2021-12-08] MEDS: Calcitonin,Salmon,Synthetic 200 Units 3.7 ML PUMP R NARE SCH (21:49)
[2021-12-09] MEDS: Transdermal Patch Removal TOP SCH (00:15)
[2021-12-09] MEDS: ALPRAZolam 0.25 MG TAB PO PRN (00:41)
[2021-12-09] MEDS: Levothyroxine Sodium 50 MCG TAB PO SCH (05:56)
[2021-12-09] MEDS: HYDROcodone/Acetaminophen 7.5/325 mg Tablet PO PRN (05:59)
[2021-12-09] MEDS: Polyethylene Glycol 3350 17 GM Packet PO SCH (08:28)
[2021-12-09] MEDS: Docusate 100 MG CAP PO SCH (08:28)
[2021-12-09] MEDS: Nitrofurantoin Monohyd/M-Cryst 100 MG CAP PO SCH ×2 (08:41→21:28)
[2021-12-09] MEDS: Lidocaine 5% Patch TD SCH (12:14)
[2021-12-09] MEDS ORDERED: Lidocaine 2% 6 ML SYR ONE (13:13)
[2021-12-09] MEDS ORDERED: Lidocaine 0.5%/Epinephrine 1:200,000 50 ml Vial ONE (13:13)
[2021-12-09] MEDS ORDERED: Bupivacaine PF 0.5% 30 ML VIAL ONE (13:13)
[2021-12-09] MEDS ORDERED: Iopamidol 0 ML ONE (13:13)
[2021-12-09] MEDS ORDERED: EPINEPHrine 1 MG/ML AMP ONE (13:13)
[2021-12-09] MEDS ORDERED: Lidocaine 1% MPF 2 ML VIAL ONE (13:15)
[2021-12-09] MEDS ORDERED: fentaNYL Citrate/PF 100 MCG/2 ML SYRINGE ONE ×2 (13:18→15:15)
[2021-12-09] MEDS ORDERED: Vancomycin 1 GM/200 ML BAG ONE (13:39)
[2021-12-09] MEDS ORDERED: PROPOFOL 200 MG/20 ML VIAL ONE (14:00)
[2021-12-09] MEDS ORDERED: Ketamine 50 MG/ML (10ML VIAL) ONE (14:01)
[2021-12-09] MEDS ORDERED: Promethazine HCl 25 MG/ML VIAL IM PRN (15:09)
[2021-12-09] MEDS ORDERED: Ondansetron HCl/PF 4 MG/2 ML Vial IVP PRN (15:09)
[2021-12-09] MEDS ORDERED: Promethazine HCl 25 MG/ML VIAL IVPB PRN (15:09)
[2021-12-09] MEDS ORDERED: Promethazine HCl 25 MG/ML VIAL ONE (15:26)
[2021-12-09] MEDS ORDERED: Fentanyl 100 MCG/2 ML VIAL ONE (15:26)
[2021-12-09] MEDS: Ketorolac Tromethamine 30 MG/ML VIAL IVP SCH (18:49)
[2021-12-09] MEDS: Calcitonin,Salmon,Synthetic 200 Units 3.7 ML PUMP L NARE SCH (20:06)
[2021-12-09] MEDS: Atorvastatin Calcium 40 MG TAB PO SCH (21:28)
[2021-12-09] MEDS: Gabapentin 100 MG CAP PO SCH (21:28)
[2021-12-10] MEDS: Transdermal Patch Removal TOP SCH (00:12)
[2021-12-10] MEDS: Levothyroxine Sodium 50 MCG TAB PO SCH (05:09)
[2021-12-10] MEDS: HYDROcodone/Acetaminophen 7.5/325 mg Tablet PO PRN ×2 (05:10→08:58)
[2021-12-10] MEDS: Nitrofurantoin Monohyd/M-Cryst 100 MG CAP PO SCH (08:51)
[2021-12-10] MEDS: Polyethylene Glycol 3350 17 GM Packet PO SCH (08:51)
[2021-12-10] MEDS: Docusate 100 MG CAP PO SCH (08:53)
[2021-12-10] MEDS: Lidocaine 5% Patch TD SCH (12:17)
[2021-12-10] MEDS: HumaLOG 300 UNITS/3 ML VIAL SC PRN ×2 (12:17→17:47)
[2021-12-10] MEDS: Ketorolac Tromethamine 30 MG/ML VIAL IVP SCH (17:46)
[2021-12-10 17:57] VITALS: BP 119/70; TEMP 98.6
[2021-12-10] MEDS: Calcitonin,Salmon,Synthetic 200 Units 3.7 ML PUMP R NARE SCH (18:04)
== END 2021-12-10 20:36 | DRG 516 ==
LOC: ERS 09:39 → SUATTDRO 09:39 → SURG A 11:32
PROVIDERS: ADMIT Internal Medicine; ATTEND Internal Medicine
PROC: 0QQ Lower Bones, Repair (ICD-10-PCS; principal; 2021-12-09)
DX: M80.08XA Age-related osteoporosis with current pathological fracture, vertebra(e), initial encounter for fracture (principal); N39.0 Urinary tract infection, site not specified; Z20.822 Contact with and (suspected) exposure to COVID-19; I10 Essential (primary) hypertension; E11.9 Type 2 diabetes mellitus without complications; E78.5 Hyperlipidemia, unspecified; E03.9 Hypothyroidism, unspecified; B95.2 Enterococcus as the cause of diseases classified elsewhere; Z90.49 Acquired absence of other specified parts of digestive tract; Z88.0 Allergy status to penicillin; Z88.5 Allergy status to narcotic agent; Z88.1 Allergy status to other antibiotic agents; Z79.01 Long term (current) use of anticoagulants; Z79.52 Long term (current) use of systemic steroids; Z79.890 Hormone replacement therapy; Z79.899 Other long term (current) drug therapy
CPT/HCPCS: 36415; 36416; 72131; 72220; 76000; 78306; 80048; 80053; 81003; 81015; 85025; 87077; 87086; 87186; 96372; 99284; A9503; J0171; J1885; J2001; J2405; J2550; J2704; J3010; J3370; Q9967; S0020; U0002

== ENCOUNTER 2022-05-04 09:34 | Emergency (ER) | payer MEDICARE ==
[2022-05-04 10:14] LABS: #Eosinphils 0.1 thou/uL (0.0-0.7); #Lymphocytes 0.7 thou/uL (1.20-3.40); #Monocytes 0.4 thou/uL (0.11-0.59); #Neutrophils 7.7 thou/uL (1.40-6.50); %Basophils 0.1 % (0.0-1.0); %Eosinophils 0.8 % (0.0-10.0); %Lymphocytes 8.2 % (21.0-51.0); %Monocytes 4.6 % (0.0-10.0); %Neutrophils 86.3 % (42.0-75.0); Hemoglobin 11.5 g/dL (12.0-16.0); Mean Corpuscular HGB CONC 32.4 g/dL (32.0-36.0); Mean Corpuscular Hemoglobin 31.6 pg (27.0-31.0); Mean Corpuscular Volume 97.4 fl (78.0-98.0); Mean Platelet Volume 7.9 fL (7.4-10.4); Platelet Count 196 10x3/uL (130-400); RBC Distribution Width 15.4 % (11.5-14.5); Red Blood Cell (RBC) Count 3.64 mill/uL (4.20-5.40)
[2022-05-04 10:43] LABS: ALT (SGPT) 9 U/L (8-55); AST (SGOT) 16 U/L (5-34); Albumin 3.4 g/dL (3.4-4.8); Alkaline Phosphatase 93 U/L (40-110); Anion Gap 13 mmol/L (10-20); BUN (Urea Nitrogen) 16 mg/dL (9.8-20.1); Calc. Creatinine Clearance 0 mL/min (70-130); Calcium 8.9 mg/dL (7.8-10.44); Carbon Dioxide 23 mmol/L (23-31); Chloride 108 mmol/L (98-107); Estimated GFR 80; Globulin 2.3 g/dL (2.4-3.5); Glucose 180 mg/dL (83-110); Potassium 3.6 mmol/L (3.5-5.1); Protein, Total 5.7 g/dL (5.8-8.1); Sodium 140 mmol/L (136-145)
[2022-05-04] MEDS ORDERED: Fentanyl 100 MCG/2 ML VIAL ONE (15:49)
== END 2022-05-04 17:41 ==
LOC: ERS 09:34
DX: S32.040A Wedge compression fracture of fourth lumbar vertebra, initial encounter for closed fracture (principal); S32.10XA Unspecified fracture of sacrum, initial encounter for closed fracture; S40.022A Contusion of left upper arm, initial encounter; R53.1 Weakness; E78.5 Hyperlipidemia, unspecified; I10 Essential (primary) hypertension; E11.9 Type 2 diabetes mellitus without complications; E03.9 Hypothyroidism, unspecified; Z79.899 Other long term (current) drug therapy; Z79.01 Long term (current) use of anticoagulants
CPT/HCPCS: 36415; 72131; 80053; 85025; 93005; 94760; 96374; J3010

== ENCOUNTER 2022-05-15 05:38 | Observation (INO) | payer MEDICARE ==
[2022-05-15] MEDS ORDERED: Fentanyl 250 MCG/5 ML VIAL ONE (06:30)
[2022-05-15] MEDS ORDERED: Propofol 500 MG/50 ML VIAL ONE (06:30)
[2022-05-15] MEDS ORDERED: Lidocaine 1% MPF 2 ML VIAL ONE (06:38)
[2022-05-15] MEDS ORDERED: Bupivacaine HCl 0.5%/Epinephrine 1:200,000/PF 30 ml Vial ONE (06:38)
[2022-05-15] MEDS ORDERED: Iopamidol 0 ML ONE (06:38)
[2022-05-15] MEDS ORDERED: Ketamine 50 MG/ML (10ML VIAL) ONE (07:02)
[2022-05-15] MEDS ORDERED: Midazolam HCl 2 mg/2 ml Vial ONE (07:02)
[2022-05-15] MEDS ORDERED: Ondansetron ODT 4 MG TAB PO PRN (07:24)
[2022-05-15] MEDS ORDERED: Senokot S 8.6-50 MG TAB PO PRN (07:24)
[2022-05-15] MEDS ORDERED: Bisacodyl 5 MG TAB PO PRN (07:24)
[2022-05-15 07:44] LABS: SARS-CoV-2 NAA Rapid Test Not Detected (NotDetected)
[2022-05-15] MEDS ORDERED: Loperamide HCl 2 MG CAP PO PRN (08:14)
[2022-05-15] MEDS ORDERED: Nitroglycerin 0.4 MG TAB (25 Tab Bottle) SL PRN (08:14)
[2022-05-15] MEDS ORDERED: Apixaban 5 MG TAB PO SCH (08:15)
[2022-05-15] MEDS ORDERED: Bisacodyl 10 MG SUPP PR PRN (08:25)
[2022-05-15] MEDS ORDERED: Calcium Carbonate 500 MG ChewTAB PO PRN (08:26)
[2022-05-15] MEDS ORDERED: cloNIDine 0.1 MG TAB PO PRN (08:27)
[2022-05-15] MEDS ORDERED: Docusate 100 MG CAP PO PRN (08:30)
[2022-05-15] MEDS ORDERED: HYDROcodone/Acetaminophen 7.5/325 mg Tablet ONE (11:38)
[2022-05-15] MEDS: HYDROcodone/Acetaminophen 7.5/325 mg Tablet PO PRN ×2 (11:44→20:42)
[2022-05-15] MEDS ORDERED: Dextrose 5% in Water 1,000 ML IV PRN (12:12)
[2022-05-15] MEDS ORDERED: Dextrose 50% Abboject 50 ML SYRINGE SLOW IVP PRN (12:12)
[2022-05-15] MEDS: Gabapentin 100 MG CAP PO SCH ×3 (15:35→20:30)
[2022-05-15] MEDS: ALPRAZolam 0.25 MG TAB PO SCH (15:35)
[2022-05-15 15:43] VITALS: BMI 19.8
[2022-05-15] MEDS: ALPRAZolam 0.25 MG TAB PO PRN (17:17)
[2022-05-15] MEDS: hydrOXYzine 10 MG TAB PO PRN (20:29)
[2022-05-15] MEDS: Atorvastatin Calcium 40 MG TAB PO SCH (20:29)
[2022-05-15] MEDS: Apixaban 5 MG TAB PO SCH (20:30)
[2022-05-16] MEDS: Levothyroxine Sodium 50 MCG TAB PO SCH (06:08)
[2022-05-16] MEDS: HYDROcodone/Acetaminophen 7.5/325 mg Tablet PO PRN ×2 (06:08→15:47)
[2022-05-16] MEDS: ALPRAZolam 0.25 MG TAB PO SCH (08:46)
[2022-05-16] MEDS: Apixaban 5 MG TAB PO SCH ×2 (08:47→20:54)
[2022-05-16] MEDS: Gabapentin 100 MG CAP PO SCH ×3 (08:47→20:54)
[2022-05-16] MEDS: predniSONE 5 MG TAB PO SCH (08:47)
[2022-05-16] MEDS: Glimepiride 1 MG TAB PO SCH (09:59)
[2022-05-16] MEDS: HumaLOG 300 UNITS/3 ML VIAL SC PRN (16:51)
[2022-05-16] MEDS: Atorvastatin Calcium 40 MG TAB PO SCH (20:54)
[2022-05-16] MEDS ORDERED: Melatonin 3 MG TAB PO PRN (21:02)
[2022-05-16] MEDS: Acetaminophen 500 MG TAB PO PRN (23:08)
[2022-05-17] MEDS: Levothyroxine Sodium 50 MCG TAB PO SCH (05:08)
[2022-05-17] MEDS: HYDROcodone/Acetaminophen 7.5/325 mg Tablet PO PRN ×2 (05:08→15:09)
[2022-05-17] MEDS: Apixaban 5 MG TAB PO SCH ×2 (08:00→20:07)
[2022-05-17] MEDS: Gabapentin 100 MG CAP PO SCH ×3 (08:00→20:07)
[2022-05-17] MEDS: ALPRAZolam 0.25 MG TAB PO SCH (08:00)
[2022-05-17] MEDS: Glimepiride 1 MG TAB PO SCH (08:00)
[2022-05-17] MEDS: Acetaminophen 500 MG TAB PO PRN ×2 (08:01→20:08)
[2022-05-17] MEDS: predniSONE 5 MG TAB PO SCH (08:06)
[2022-05-17] MEDS: HumaLOG 300 UNITS/3 ML VIAL SC PRN (12:40)
[2022-05-17] MEDS: Atorvastatin Calcium 40 MG TAB PO SCH (20:07)
[2022-05-17] MEDS: ALPRAZolam 0.25 MG TAB PO PRN (20:08)
[2022-05-18] MEDS: Levothyroxine Sodium 50 MCG TAB PO SCH (06:01)
[2022-05-18] MEDS: HYDROcodone/Acetaminophen 7.5/325 mg Tablet PO PRN ×2 (06:02→20:42)
[2022-05-18] MEDS: predniSONE 5 MG TAB PO SCH (09:20)
[2022-05-18] MEDS: Apixaban 5 MG TAB PO SCH ×2 (09:21→20:43)
[2022-05-18] MEDS: Gabapentin 100 MG CAP PO SCH ×3 (09:21→20:43)
[2022-05-18] MEDS: ALPRAZolam 0.25 MG TAB PO SCH (09:22)
[2022-05-18] MEDS: Glimepiride 1 MG TAB PO SCH (09:29)
[2022-05-18] MEDS: ALPRAZolam 0.25 MG TAB PO PRN (20:43)
[2022-05-18] MEDS: Atorvastatin Calcium 40 MG TAB PO SCH (20:43)
[2022-05-19] MEDS: Levothyroxine Sodium 50 MCG TAB PO SCH (05:36)
[2022-05-19] MEDS: Apixaban 5 MG TAB PO SCH ×2 (08:56→20:14)
[2022-05-19] MEDS: Gabapentin 100 MG CAP PO SCH ×3 (08:56→20:14)
[2022-05-19] MEDS: predniSONE 5 MG TAB PO SCH (08:56)
[2022-05-19] MEDS: ALPRAZolam 0.25 MG TAB PO SCH (08:57)
[2022-05-19] MEDS: HYDROcodone/Acetaminophen 7.5/325 mg Tablet PO PRN (09:06)
[2022-05-19] MEDS: HumaLOG 300 UNITS/3 ML VIAL SC PRN ×2 (11:49→17:32)
[2022-05-19] MEDS: Glimepiride 1 MG TAB PO SCH (13:02)
[2022-05-19 14:19] LABS: #Lymphocytes 0.8 thou/uL (1.20-3.40); #Monocytes 0.2 thou/uL (0.11-0.59); #Neutrophils 7.2 thou/uL (1.40-6.50); %Basophils 0.3 % (0.0-1.0); %Eosinophils 0.5 % (0.0-10.0); %Lymphocytes 9.3 % (21.0-51.0); %Monocytes 2.2 % (0.0-10.0); %Neutrophils 87.8 % (42.0-75.0); Hemoglobin 11.9 g/dL (12.0-16.0); Mean Corpuscular HGB CONC 34.3 g/dL (32.0-36.0); Mean Corpuscular Hemoglobin 32.4 pg (27.0-31.0); Mean Corpuscular Volume 94.6 fl (78.0-98.0); Mean Platelet Volume 7.9 fL (7.4-10.4); Platelet Count 174 10x3/uL (130-400); RBC Distribution Width 15.6 % (11.5-14.5); Red Blood Cell (RBC) Count 3.68 mill/uL (4.20-5.40); White Blood Cell (WBC) Count 8.2 10x3/uL (4.8-10.8)
[2022-05-19 14:43] LABS: ALT (SGPT) 28 U/L (8-55); AST (SGOT) 22 U/L (5-34); Albumin 3.7 g/dL (3.4-4.8); Alkaline Phosphatase 76 U/L (40-110); Anion Gap 12 mmol/L (10-20); BUN (Urea Nitrogen) 28 mg/dL (9.8-20.1); Bilirubin, Total 0.8 mg/dL (0.2-1.2); Calc. Creatinine Clearance 37 mL/min (70-130); Calcium 9.4 mg/dL (7.8-10.44); Carbon Dioxide 25 mmol/L (23-31); Chloride 104 mmol/L (98-107); Estimated GFR 70; Globulin 2.4 g/dL (2.4-3.5); Glucose 213 mg/dL (83-110); Potassium 4.1 mmol/L (3.5-5.1); Protein, Total 6.1 g/dL (5.8-8.1); Sodium 137 mmol/L (136-145)
[2022-05-19] MEDS: Atorvastatin Calcium 40 MG TAB PO SCH (20:14)
[2022-05-19] MEDS: ALPRAZolam 0.25 MG TAB PO PRN (20:16)
[2022-05-19] MEDS: hydrOXYzine 10 MG TAB PO PRN (20:16)
[2022-05-20] MEDS: HYDROcodone/Acetaminophen 7.5/325 mg Tablet PO PRN (05:29)
[2022-05-20] MEDS: Levothyroxine Sodium 50 MCG TAB PO SCH (05:29)
[2022-05-20] MEDS: Gabapentin 100 MG CAP PO SCH ×2 (08:40→13:56)
[2022-05-20] MEDS: predniSONE 5 MG TAB PO SCH (08:40)
[2022-05-20] MEDS: Glimepiride 1 MG TAB PO SCH (08:40)
[2022-05-20] MEDS: ALPRAZolam 0.25 MG TAB PO SCH (08:40)
[2022-05-20] MEDS: Apixaban 5 MG TAB PO SCH (08:40)
[2022-05-20] MEDS: HumaLOG 300 UNITS/3 ML VIAL SC PRN (11:48)
[2022-05-20 13:05] VITALS: BP 126/79; TEMP 97.6
== END 2022-05-20 14:56 | disposition home health service (06) ==
LOC: SDC 05:38 → SURG B 15:26
PROVIDERS: ADMIT Family Medicine; ATTEND Family Medicine
DX: S32.040A Wedge compression fracture of fourth lumbar vertebra, initial encounter for closed fracture (principal); L89.159 Pressure ulcer of sacral region, unspecified stage; I48.0 Paroxysmal atrial fibrillation; G89.4 Chronic pain syndrome; M54.50 Low back pain, unspecified; E11.9 Type 2 diabetes mellitus without complications; I25.10 Atherosclerotic heart disease of native coronary artery without angina pectoris; M81.0 Age-related osteoporosis without current pathological fracture; I44.7 Left bundle-branch block, unspecified; E03.9 Hypothyroidism, unspecified; Z53.09 Procedure and treatment not carried out because of other contraindication; Z87.891 Personal history of nicotine dependence; Z79.52 Long term (current) use of systemic steroids; Z79.84 Long term (current) use of oral hypoglycemic drugs; Z79.890 Hormone replacement therapy; Z79.899 Other long term (current) drug therapy; Z88.0 Allergy status to penicillin; Z88.1 Allergy status to other antibiotic agents; Z88.5 Allergy status to narcotic agent; Z95.0 Presence of cardiac pacemaker; Z95.5 Presence of coronary angioplasty implant and graft; Z20.822 Contact with and (suspected) exposure to COVID-19
CPT/HCPCS: 80053; 82962 ×6; 85025; 97139 ×6; G0378 ×6; U0002; 36415; 36416; J1815; J2250; J2704; J3010; J7512; Q0162; Q9967

== ENCOUNTER 2022-07-28 09:23 | Emergency (ER) | payer MEDICARE ==
[2022-07-28] MEDS ORDERED: HYDROcodone/Acetaminophen 10/325 mg Tablet ONE ×2 (10:11→15:26)
== END 2022-07-28 15:37 | disposition home or self-care (01) ==
LOC: ERS 09:23
DX: M54.50 Low back pain, unspecified (principal); M25.551 Pain in right hip; I10 Essential (primary) hypertension; E78.5 Hyperlipidemia, unspecified; E11.9 Type 2 diabetes mellitus without complications; E03.9 Hypothyroidism, unspecified; Z79.899 Other long term (current) drug therapy; Z79.01 Long term (current) use of anticoagulants

== ENCOUNTER 2022-08-23 17:32 | Inpatient (IN) | payer MEDICARE ==
[~2022-08-23 17:32] MED LIST changes: -Iopamidol-370 76% 500 ML 1 ML ONE; +Iopamidol-370 76% 500 ML MDV (1 ML CHARGE) ONE
[2022-08-23 18:04] LABS: #Lymphocytes 0.8 thou/uL (1.20-3.40); #Monocytes 0.7 thou/uL (0.11-0.59); #Neutrophils 7.6 thou/uL (1.40-6.50); %Basophils 0.3 % (0.0-1.0); %Eosinophils 0.3 % (0.0-10.0); %Lymphocytes 9.1 % (21.0-51.0); %Monocytes 7.1 % (0.0-10.0); %Neutrophils 83.3 % (42.0-75.0); Hemoglobin 10.9 g/dL (12.0-16.0); Mean Corpuscular HGB CONC 34.2 g/dL (32.0-36.0); Mean Corpuscular Volume 93.5 fl (78.0-98.0); Mean Platelet Volume 7.8 fL (7.4-10.4); Platelet Count 176 10x3/uL (130-400); RBC Distribution Width 15.5 % (11.5-14.5); Red Blood Cell (RBC) Count 3.42 mill/uL (4.20-5.40); White Blood Cell (WBC) Count 9.2 10x3/uL (4.8-10.8)
[2022-08-23 18:15] LABS: INR-International Normal Ratio 1.7; Prothrombin Time 20.4 sec (12.0-14.7)
[2022-08-23 18:22] LABS: ALT (SGPT) 53 U/L (8-55); AST (SGOT) 72 U/L (5-34); Albumin 3.1 g/dL (3.4-4.8); Alkaline Phosphatase 106 U/L (40-110); Anion Gap 14 mmol/L (10-20); BUN (Urea Nitrogen) 23 mg/dL (9.8-20.1); Bilirubin, Total 0.7 mg/dL (0.2-1.2); Calc. Creatinine Clearance 0 mL/min (70-130); Calcium 8.1 mg/dL (7.8-10.44); Carbon Dioxide 19 mmol/L (23-31); Chloride 111 mmol/L (98-107); Estimated GFR 72; Globulin 2.5 g/dL (2.4-3.5); Glucose 213 mg/dL (83-110); Protein, Total 5.6 g/dL (5.8-8.1); Sodium 140 mmol/L (136-145)
[2022-08-23] MEDS ORDERED: Vancomycin 1 GM/200 ML (FROZEN) BAG ONE (18:47)
[2022-08-23] MEDS ORDERED: Cefepime 2 GM VIAL ONE (18:47)
[2022-08-23 19:45] LABS: Bacteria/HPF None Seen HPF (None Seen); Bilirubin Negative (Negative); Blood, Urine 3+ (Negative); Clarity Clear (Clear); Glucose, Urine (Dipstick) Normal (Negative); Ketone, Urine Negative (Negative); Leukocyte Negative Leu/uL (Negative); Nitrite Negative (Negative); Protein, Urine (Dipstick) 20 mg/dL (Neg-Trace); RBC/HPF Greater than 50 HPF (0-3); Specific Gravity, Urine 1.026 (1.002-1.036); Squamous Epithelial None Seen HPF (0-3); WBC/HPF 0-3 HPF (0-3)
[2022-08-23] MEDS ORDERED: Azithromycin 500 MG VIAL ONE (20:24)
[2022-08-23] MEDS ORDERED: NOREPINEPHRINE 8 MG/250 ML-D5W 250 ML ONE (21:15)
[2022-08-23 21:33] LABS: SARS-CoV-2 NAA Rapid Test Not Detected (NotDetected)
[2022-08-23] MEDS ORDERED: Ondansetron PF 4 MG/2 ML Vial IVP PRN (22:30)
[2022-08-23 22:36] LABS: Lactic Acid 1.4 mmol/L (0.5-2.2)
[2022-08-23] MEDS ORDERED: CEFEPIME IVPB PRN (22:59)
[2022-08-23] MEDS ORDERED: Cefepime 2 GM in Sodium Chloride 0.9% 100 ML IVPB SCH (23:59)
[2022-08-24 00:33] VITALS: BMI 21.4
[2022-08-24] MEDS: Sodium Chloride 0.9% 1,000 ML IV SCH ×4 (01:19→21:27)
[2022-08-24] MEDS: metroNIDAZOLE 500 MG in Premix Bag 1 BAG IVPB SCH ×5 (01:19→21:27)
[2022-08-24] MEDS ORDERED: NOREPINEPHRINE 8 MG/250 ML-D5W 250 ML IVPB SCH (02:00)
[2022-08-24] MEDS: HYDROcodone/Acetaminophen 5/325 mg Tablet PO PRN ×4 (03:47→19:33)
[2022-08-24 04:22] LABS: #Lymphocytes 1.5 thou/uL (1.20-3.40); #Monocytes 1.3 thou/uL (0.11-0.59); #Neutrophils 8.1 thou/uL (1.40-6.50); %Basophils 0.2 % (0.0-1.0); %Eosinophils 0.3 % (0.0-10.0); %Lymphocytes 13.4 % (21.0-51.0); %Monocytes 11.6 % (0.0-10.0); %Neutrophils 74.6 % (42.0-75.0); Hemoglobin 9.5 g/dL (12.0-16.0); Mean Corpuscular HGB CONC 33.6 g/dL (32.0-36.0); Mean Corpuscular Volume 92.2 fl (78.0-98.0); Mean Platelet Volume 7.8 fL (7.4-10.4); Platelet Count 174 10x3/uL (130-400); RBC Distribution Width 15.4 % (11.5-14.5); Red Blood Cell (RBC) Count 3.05 mill/uL (4.20-5.40); White Blood Cell (WBC) Count 10.9 10x3/uL (4.8-10.8)
[2022-08-24 04:43] LABS: ALT (SGPT) 53 U/L (8-55); AST (SGOT) 52 U/L (5-34); Albumin 2.8 g/dL (3.4-4.8); Alkaline Phosphatase 94 U/L (40-110); Anion Gap 11 mmol/L (10-20); BUN (Urea Nitrogen) 18 mg/dL (9.8-20.1); Bilirubin, Total 0.8 mg/dL (0.2-1.2); Calc. Creatinine Clearance 50 mL/min (70-130); Calcium 7.9 mg/dL (7.8-10.44); Carbon Dioxide 20 mmol/L (23-31); Chloride 115 mmol/L (98-107); Estimated GFR 84; Globulin 2.2 g/dL (2.4-3.5); Glucose 154 mg/dL (83-110); Potassium 3.5 mmol/L (3.5-5.1); Sodium 142 mmol/L (136-145)
[2022-08-24] MEDS ORDERED: Famotidine/PF 20 mg/2ml Vial SLOW IVP SCH (09:00)
[2022-08-24] MEDS ORDERED: Potassium Bicarbonate/Cit Ac 20 MEQ TAB PO SCH (09:00)
[2022-08-24] MEDS ORDERED: Magnesium 2 GM/50 ML(in water) 2 GM in Premix Bag 1 BAG IVPB SCH (09:00)
[2022-08-24] MEDS: Polyethylene Glycol 3350 17 GM Packet PER TUBE SCH (09:49)
[2022-08-24] MEDS: Senokot S 8.6-50 MG TAB PO SCH ×2 (09:49→19:34)
[2022-08-24] MEDS: Apixaban 5 MG TAB PO SCH ×2 (09:49→19:34)
[2022-08-24] MEDS: Cefepime 1 GM in Sodium Chloride 0.9% 100 ML IVPB SCH ×2 (12:10→23:17)
[2022-08-24] MEDS: ALPRAZolam 0.25 MG TAB PO PRN (14:38)
[2022-08-24] MEDS ORDERED: Mineral Oil ENEMA PR SCH (17:15)
[2022-08-24] MEDS ORDERED: Vancomycin 1 GM in Premix Bag 1 BAG IVPB SCH (20:00)
[2022-08-24] MEDS: Melatonin 3 MG TAB PO PRN (21:27)
[2022-08-25] MEDS: HYDROcodone/Acetaminophen 5/325 mg Tablet PO PRN ×6 (00:43→23:25)
[2022-08-25] MEDS: FlunisoLIDE 0.025% Nasal Spray 25 ml Bottle EA NARE SCH ×3 (04:29→21:13)
[2022-08-25] MEDS: metroNIDAZOLE 500 MG in Premix Bag 1 BAG IVPB SCH ×3 (05:13→21:13)
[2022-08-25] MEDS: Sodium Chloride 0.9% 1,000 ML IV SCH ×2 (05:17→23:25)
[2022-08-25 05:53] LABS: #Eosinphils 0.1 thou/uL (0.0-0.7); #Monocytes 0.4 thou/uL (0.11-0.59); #Neutrophils 4.3 thou/uL (1.40-6.50); %Basophils 0.7 % (0.0-1.0); %Eosinophils 1.4 % (0.0-10.0); %Lymphocytes 17.8 % (21.0-51.0); %Monocytes 7.2 % (0.0-10.0); %Neutrophils 72.9 % (42.0-75.0); Hemoglobin 8.3 g/dL (12.0-16.0); Mean Corpuscular HGB CONC 33.5 g/dL (32.0-36.0); Mean Corpuscular Hemoglobin 30.8 pg (27.0-31.0); Mean Corpuscular Volume 91.9 fl (78.0-98.0); Mean Platelet Volume 7.9 fL (7.4-10.4); Platelet Count 123 10x3/uL (130-400); RBC Distribution Width 15.2 % (11.5-14.5); Red Blood Cell (RBC) Count 2.69 mill/uL (4.20-5.40); White Blood Cell (WBC) Count 5.8 10x3/uL (4.8-10.8)
[2022-08-25 06:13] LABS: Anion Gap 8 mmol/L (10-20); BUN (Urea Nitrogen) 13 mg/dL (9.8-20.1); Calc. Creatinine Clearance 54 mL/min (70-130); Calcium 8.1 mg/dL (7.8-10.44); Carbon Dioxide 21 mmol/L (23-31); Chloride 116 mmol/L (98-107); Estimated GFR 85; Glucose 87 mg/dL (83-110); Potassium 4.1 mmol/L (3.5-5.1); Sodium 141 mmol/L (136-145)
[2022-08-25] MEDS: Apixaban 5 MG TAB PO SCH ×2 (08:14→21:11)
[2022-08-25] MEDS: Polyethylene Glycol 3350 17 GM Packet PER TUBE SCH (08:14)
[2022-08-25] MEDS: Senokot S 8.6-50 MG TAB PO SCH ×2 (08:14→21:12)
[2022-08-25] MEDS: Famotidine 20 MG TAB PO SCH (08:14)
[2022-08-25] MEDS: ALPRAZolam 0.25 MG TAB PO PRN ×2 (08:14→21:12)
[2022-08-25] MEDS ORDERED: Calcium Carbonate 500 MG ChewTAB PO PRN (11:04)
[2022-08-25] MEDS ORDERED: cloNIDine 0.1 MG TAB PO PRN (11:04)
[2022-08-25] MEDS: Cefepime 1 GM in Sodium Chloride 0.9% 100 ML IVPB SCH ×2 (11:58→23:25)
[2022-08-25] MEDS ORDERED: Milk Of Magnesia 30 ML UDCUP PO PRN (12:09)
[2022-08-25] MEDS ORDERED: MINERAL OIL 30 ML UDCUP PO PRN (12:10)
[2022-08-25] MEDS: Gabapentin 100 MG CAP PO SCH ×2 (14:23→21:12)
[2022-08-25] MEDS ORDERED: Acetaminophen 325 MG TAB PO PRN ×2 (15:32→16:30)
[2022-08-25] MEDS ORDERED: Ketorolac Tromethamine 30 MG/ML VIAL IVP PRN (16:14)
[2022-08-25] MEDS: Atorvastatin Calcium 40 MG TAB PO SCH (21:11)
[2022-08-25] MEDS: Melatonin 3 MG TAB PO PRN (21:12)
[2022-08-26] MEDS: metroNIDAZOLE 500 MG in Premix Bag 1 BAG IVPB SCH ×3 (05:15→20:39)
[2022-08-26] MEDS: Levothyroxine Sodium 50 MCG TAB PO SCH (05:16)
[2022-08-26] MEDS: HYDROcodone/Acetaminophen 5/325 mg Tablet PO PRN ×2 (05:26→17:34)
[2022-08-26 06:21] LABS: #Eosinphils 0.1 thou/uL (0.0-0.7); #Lymphocytes 1.1 thou/uL (1.20-3.40); #Monocytes 0.3 thou/uL (0.11-0.59); #Neutrophils 2.6 thou/uL (1.40-6.50); %Basophils 0.7 % (0.0-1.0); %Eosinophils 2.5 % (0.0-10.0); %Lymphocytes 25.9 % (21.0-51.0); %Neutrophils 63.8 % (42.0-75.0); Hemoglobin 8.5 g/dL (12.0-16.0); Mean Corpuscular HGB CONC 33.8 g/dL (32.0-36.0); Mean Corpuscular Hemoglobin 31.4 pg (27.0-31.0); Mean Corpuscular Volume 92.9 fl (78.0-98.0); Mean Platelet Volume 8.1 fL (7.4-10.4); Platelet Count 126 10x3/uL (130-400); RBC Distribution Width 15.2 % (11.5-14.5); Red Blood Cell (RBC) Count 2.72 mill/uL (4.20-5.40); White Blood Cell (WBC) Count 4.1 10x3/uL (4.8-10.8)
[2022-08-26 06:31] LABS: Anion Gap 9 mmol/L (10-20); BUN (Urea Nitrogen) 12 mg/dL (9.8-20.1); Calc. Creatinine Clearance 51 mL/min (70-130); Calcium 8.1 mg/dL (7.8-10.44); Carbon Dioxide 22 mmol/L (23-31); Chloride 115 mmol/L (98-107); Estimated GFR 84; Glucose 85 mg/dL (83-110); Potassium 4.2 mmol/L (3.5-5.1); Sodium 142 mmol/L (136-145)
[2022-08-26] MEDS: Famotidine 20 MG TAB PO SCH (08:34)
[2022-08-26] MEDS: Senokot S 8.6-50 MG TAB PO SCH ×2 (08:34→20:35)
[2022-08-26] MEDS: FlunisoLIDE 0.025% Nasal Spray 25 ml Bottle EA NARE SCH ×2 (08:35→20:38)
[2022-08-26] MEDS: Apixaban 5 MG TAB PO SCH ×2 (08:35→20:38)
[2022-08-26] MEDS: Polyethylene Glycol 3350 17 GM Packet PER TUBE SCH (08:35)
[2022-08-26] MEDS: Gabapentin 100 MG CAP PO SCH ×3 (08:35→20:36)
[2022-08-26] MEDS ORDERED: Magnesium Citrate 300 ML BOT PO SCH (10:15)
[2022-08-26] MEDS: Cefepime 1 GM in Sodium Chloride 0.9% 100 ML IVPB SCH (11:26)
[2022-08-26] MEDS: Sodium Chloride 0.9% 1,000 ML IV SCH (13:38)
[2022-08-26] MEDS: Melatonin 3 MG TAB PO PRN (20:34)
[2022-08-26] MEDS: ALPRAZolam 0.25 MG TAB PO PRN (20:34)
[2022-08-26] MEDS: Atorvastatin Calcium 40 MG TAB PO SCH (20:38)
[2022-08-27] MEDS: Cefepime 1 GM in Sodium Chloride 0.9% 100 ML IVPB SCH ×2 (00:03→12:50)
[2022-08-27] MEDS: HYDROcodone/Acetaminophen 5/325 mg Tablet PO PRN ×3 (03:48→13:48)
[2022-08-27] MEDS: metroNIDAZOLE 500 MG in Premix Bag 1 BAG IVPB SCH ×2 (06:04→13:47)
[2022-08-27] MEDS: Sodium Chloride 0.9% 1,000 ML IV SCH (06:05)
[2022-08-27] MEDS: Levothyroxine Sodium 50 MCG TAB PO SCH (06:05)
[2022-08-27 06:27] LABS: #Eosinphils 0.1 thou/uL (0.0-0.7); #Lymphocytes 1.1 thou/uL (1.20-3.40); #Monocytes 0.3 thou/uL (0.11-0.59); #Neutrophils 3.4 thou/uL (1.40-6.50); %Basophils 0.4 % (0.0-1.0); %Eosinophils 2.6 % (0.0-10.0); %Lymphocytes 22.5 % (21.0-51.0); %Monocytes 6.3 % (0.0-10.0); %Neutrophils 68.2 % (42.0-75.0); Hemoglobin 8.7 g/dL (12.0-16.0); Mean Corpuscular HGB CONC 33.7 g/dL (32.0-36.0); Mean Corpuscular Hemoglobin 31.2 pg (27.0-31.0); Mean Corpuscular Volume 92.4 fl (78.0-98.0); Mean Platelet Volume 7.7 fL (7.4-10.4); Platelet Count 136 10x3/uL (130-400); RBC Distribution Width 15.2 % (11.5-14.5)
[2022-08-27 06:48] LABS: Anion Gap 8 mmol/L (10-20); BUN (Urea Nitrogen) 12 mg/dL (9.8-20.1); Calc. Creatinine Clearance 54 mL/min (70-130); Calcium 8.1 mg/dL (7.8-10.44); Carbon Dioxide 23 mmol/L (23-31); Chloride 114 mmol/L (98-107); Estimated GFR 86; Glucose 95 mg/dL (83-110); Potassium 4.1 mmol/L (3.5-5.1); Sodium 141 mmol/L (136-145)
[2022-08-27] MEDS: Apixaban 5 MG TAB PO SCH (08:43)
[2022-08-27] MEDS: Famotidine 20 MG TAB PO SCH (08:43)
[2022-08-27] MEDS: Senokot S 8.6-50 MG TAB PO SCH (08:43)
[2022-08-27] MEDS: Polyethylene Glycol 3350 17 GM Packet PER TUBE SCH (08:44)
[2022-08-27] MEDS: Gabapentin 100 MG CAP PO SCH ×2 (08:44→14:57)
[2022-08-27] MEDS: FlunisoLIDE 0.025% Nasal Spray 25 ml Bottle EA NARE SCH (08:45)
[2022-08-27 13:56] VITALS: BP 115/56; TEMP 98.3
== END 2022-08-27 15:23 | DRG 392 ==
LOC: ERS 17:32 → ERHOLD 23:52 → CCU 08-24 00:05 → T4-A 08-24 11:08
PROVIDERS: ADMIT Hospitalist; ATTEND Hospitalist
PROC: 02H633Z Insertion of Infusion Device into Right Atrium, Percutaneous Approach (ICD-10-PCS; principal; 2022-08-23)
PROC: 3E043XZ Introduction of Vasopressor into Central Vein, Percutaneous Approach (ICD-10-PCS; 2022-08-23)
DX: K52.9 Noninfective gastroenteritis and colitis, unspecified (principal); I10 Essential (primary) hypertension; E78.5 Hyperlipidemia, unspecified; E11.9 Type 2 diabetes mellitus without complications; E03.9 Hypothyroidism, unspecified; M81.0 Age-related osteoporosis without current pathological fracture; M54.9 Dorsalgia, unspecified; G89.29 Other chronic pain; D63.8 Anemia in other chronic diseases classified elsewhere; I25.10 Atherosclerotic heart disease of native coronary artery without angina pectoris; I48.0 Paroxysmal atrial fibrillation; E83.42 Hypomagnesemia; R53.81 Other malaise; Z99.3 Dependence on wheelchair; Z79.02 Long term (current) use of antithrombotics/antiplatelets; Z98.890 Other specified postprocedural states; Z90.49 Acquired absence of other specified parts of digestive tract; Z95.820 Peripheral vascular angioplasty status with implants and grafts; Z95.0 Presence of cardiac pacemaker; Z88.0 Allergy status to penicillin; Z88.1 Allergy status to other antibiotic agents; Z88.6 Allergy status to analgesic agent; Z79.890 Hormone replacement therapy; Z79.899 Other long term (current) drug therapy; Z87.891 Personal history of nicotine dependence; Z20.822 Contact with and (suspected) exposure to COVID-19; L89.150 Pressure ulcer of sacral region, unstageable; K59.03 Drug induced constipation; T40.2X5A Adverse effect of other opioids, initial encounter
CPT/HCPCS: 36415; 51701; 71045; 74177; 80048; 80053; 81003; 81015; 83605; 85025; 85610; 85730; 87040; 87077; 87081; 87086; 87149; 87186; 93005; 96374; 96375; 97139; J0456; J0692; J1885; J2405; J3370-JW; J3475; J3490; J7050; Q9967